=== PATIENT | female | born 1960 | race Caucasian/White ===

== ENCOUNTER → 2017-05-15 08:49 | Outpatient (CLI) | payer MEDICAID, SELFPAY ==
--- NOTE | 2017-05-15 08:57 | US_ITS ---
US abdomen complete HISTORY: Right upper quadrant pain ITS.REASON: PAIN ORDERING PHYSICIAN: Siobhan John PATIENT AGE: 56 years COMPARISON: None FINDINGS: PANCREAS:No obvious pancreatic mass. Pancreas is difficult to visualize due to difficulty in penetrating the overlying fatty liver. CT may be better evaluation for the pancreas if clinically desired LIVER:Increased echogenicity with decreased transmission of sound consistent with hepatic steatosis. No obvious focal liver lesion however small lesions may not be delineated. RIGHT KIDNEY:Unremarkable. Normal size and echogenicity. No hydronephrosis LEFT KIDNEY:Unremarkable. No hydronephrosis. Normal size and echogenicity. GALLBLADDER:Prior cholecystectomy. Common bile duct is normal at 5 mm AORTA:No evidence of aneurysmal dilatation. SPLEEN:Unremarkable. Normal size and echogenicity ASCITES:None demonstrated. IMPRESSION: 1. Diffuse fatty liver. 2. Poor demonstration of the fine detail of the hepatic parenchyma and pancreas which may be better evaluated with CT if clinically warranted
== END ==
PROVIDERS: Family Provider Family Medicine; PCP Family Medicine; Visit Provider Nurse Practitioner Family
DX: R10.9 Unspecified abdominal pain (principal)
CPT/HCPCS: 76700

== ENCOUNTER → 2017-08-27 06:44 | Outpatient (REF) | payer MEDICAID, SELFPAY ==
[2017-08-27 08:16] LABS: Hemoglobin A1C 6.7 % (0.0-7.0)
[2017-08-27 08:47] LABS: Anion Gap 9.6 mEq/L (5-15); Blood Urea Nitrogen 18 mg/dL (7-18); Calcium 8.4 mg/dL (8.5-10.1); Carbon Dioxide 31 mmol/L (21.0-32.0); Chloride 100 mmol/L (98-107); Creatinine,Serum 0.84 mg/dL (0.55-1.02); Estimated Glomerular Filt Rate 70 ml/min (>60); GFR (African American) 85 ML/MIN (>60); Glucose 86 mg/dL (74-106); Potassium 4.6 mmoL/L (3.5-5.1); Sodium 136 mmol/L (136-145)
== END ==
LOC: LAB 06:44
PROVIDERS: Visit Provider Family Medicine
DX: R79.89 Other specified abnormal findings of blood chemistry (principal)
CPT/HCPCS: 80048; 83036

== ENCOUNTER → 2018-02-13 08:13 | Outpatient (POV) | payer MEDICAID, SELFPAY | PROVIDERS: Visit Provider Dentist | DX: Z00.00 Encounter for general adult medical examination without abnormal findings (principal) ==

== ENCOUNTER → 2018-03-13 12:19 | Outpatient (POV) | payer MEDICAID, SELFPAY | PROVIDERS: Visit Provider Dentist | DX: Z00.00 Encounter for general adult medical examination without abnormal findings (principal) ==

== ENCOUNTER → 2018-06-24 14:55 | Outpatient (CLI) | payer MEDICAID, SELFPAY ==
--- NOTE | 2018-06-24 14:57 | US_ITS ---
US breast LT complete COMPARISON: Digital mammograms with CAD same date HISTORY: Left breast pain TECHNIQUE: Ultrasound survey left breast FINDINGS: Ultrasound scanning all 4 quadrants show rather homogeneous echogenicity consistent with fatty type breast parenchyma seen on the mammogram. There is no suspicious cystic or solid mass identified. There is a normal-appearing node in the axilla measuring 2.5 cm and length. IMPRESSION: Unremarkable ultrasound left breast, patient to continue with yearly screening mammography.
--- NOTE | 2018-06-24 14:57 | MM_ITS ---
MM Dig screening mamm BI w/CAD CAD Screening COMPARISON: Digital mammograms with CAD 02/06/2016 INDICATION: There is a history of breast cancer patient's paternal aunt diagnosed before menopause. There has been a previous biopsy right breast for benign disease. TECHNIQUE: Standard CC and MLO images were obtained. R2 CAD reviewed. FINDINGS: The breasts are composed primarily of fat with minimal scattered fibroglandular densities in each breast. There is a biopsy clip central portion right breast. There is no suspicious lesion seen and there are no suspicious microcalcifications. There is a benign-appearing calcification right breast. IMPRESSION: A type breast parenchyma with no suspicious lesion seen BI-RADS Category: 2 Benign Finding(s) RECOMMENDED FOLLOW-UP: 1YR - 1 YEAR FOLLOW-UP (A letter has been sent to the patient regarding results of the study.)
== END ==
PROVIDERS: PCP Family Medicine; Visit Provider Family Medicine
DX: Z12.31 Encounter for screening mammogram for malignant neoplasm of breast (principal); N64.4 Mastodynia
CPT/HCPCS: 76641; 77067

== ENCOUNTER → 2019-04-06 12:39 | Outpatient (CLI) | payer MEDICAID, SELFPAY | PROVIDERS: Visit Provider Family Medicine | DX: R53.1 Weakness (principal) | CPT/HCPCS: 87275; 87276 ==

== ENCOUNTER → 2020-01-18 09:54 | Outpatient (CLI) | payer MEDICAID, SELFPAY ==
--- NOTE | 2020-01-18 09:55 | CT_ITS ---
PROCEDURE: CT FACIAL BONES WO/W CON CLINICAL HISTORY: facial/paroitid swelling. mouth ulcerations COMPARISON: No exams were available for comparison TECHNIQUE: 75 mL Isovue 370 Axial images obtained with sagittal and coronal reformats. All CT scans at the facility use one or more dose reduction, viz: automated exposure control, ma/kV adjustment per patient size (including targeted exams where dose is matched to indication, i.e. head), or iterative reconstruction technique. FINDINGS: Exam is performed without and with enhancement.. The orbits have an unremarkable appearance. There is a small right maxillary retention cyst at 10 mm. And osteoma is present in the right ethmoid sinus mid aspect measuring 3 mm. There are small bilateral sesar bullosa. The ostiomeatal complexes are patent. The sphenoid sinus has an unremarkable appearance. The right parotid gland is slightly larger than the left. There is some slight increased density along the anterior and inferior aspect of the right parotid gland compared to the left. No significant enhancement is evident. No parotid mass. There are 2 small nodular densities along the superior aspect, 1 in the mid aspect and 2 small nodular densities along the inferior aspect of the right parotid the largest of these measuring approximately 6 mm and may be due to small lymph nodes in the parotid gland. There are 2 small extra parotid lymph nodes on the left along the posterior aspect of the parotid inferiorly. No abnormal fluid collections. No mass no abscess. The nasopharynx, oropharynx, hypopharynx, epiglottis, has an unremarkable appearance. There is mild bilateral TMJ arthropathy. The submandibular glands have an unremarkable appearance. Scattered small nodes are present in the neck on both sides. The patient is edentulous. Small sclerotic focus is present in the angle of the mandible on the right measuring approximately 6 mm and may be due to small bone island. IMPRESSION: 1. No acute finding. No evidence of abscess or mass. 2. Mild enlargement of the right parotid gland with slight increased density compared to the left side which could be related to mild parotitis. No abscess or mass. There are 2 small nodular densities along the lower pole 2 in the upper pole and 1 in the mid aspect of the right parotid which may be due to small lymph nodes Dictated by: Tao Madison MD 01/20/2020 09:03 Tao Madison MD in [place] 01/20/2020 09:03
== END ==
PROVIDERS: PCP Family Medicine; Visit Provider Otolaryngology
DX: K12.1 Other forms of stomatitis (principal); R60.0 Localized edema
CPT/HCPCS: 70488; Q9967

== ENCOUNTER → 2020-03-27 11:02 | Outpatient (CLI) | payer MEDICAID, SELFPAY | PROVIDERS: Visit Provider Family Medicine | DX: Z20.822 Contact with and (suspected) exposure to COVID-19 (principal); U07.1 COVID-19 | CPT/HCPCS: U0003 ==

== ENCOUNTER 2020-03-31 12:05 | Outpatient (CLI) | payer MEDICAID, SELFPAY ==
[2020-03-31] VITALS (9 sets, daily range): BP systolic 120–139; BP diastolic 66–89; PULSE 80–90; RESP 16–20; TEMP 37.1–37.3; O2SAT 98–100
== END 2020-03-31 14:25 | disposition home or self-care (01) ==
PROVIDERS: PCP Nurse Practitioner Family; Visit Provider Nurse Practitioner Family
DX: U07.1 COVID-19 (principal)
CPT/HCPCS: 96365

== ENCOUNTER → 2020-09-21 10:10 | Outpatient (CLI) | payer MEDICAID, SELFPAY | PROVIDERS: PCP Nurse Practitioner Family; Visit Provider Internal Medicine Pulmonary Disease | DX: R06.09 Other forms of dyspnea (principal) | CPT/HCPCS: 94060 ==

== ENCOUNTER → 2020-12-07 15:05 | Outpatient (CLI) | payer MEDICAID, SELFPAY ==
--- NOTE | 2020-12-07 15:06 | CT_ITS ---
PROCEDURE: CT LUNG SCREENING CLINICAL INDICATION: lung cancer screening COMPARISON: CT CHW CT CHEST W/ CONTRAST from 09/12/2016 TECHNIQUE: The exam was performed on a GE Light Speed [address] scanner using 2.90 mGy CTDI. A low dose helical CT CHEST was performed on a multi-detector scanner. All CT scans at the facility use one or more dose reduction, viz: automated exposure control, ma/kV adjustment per patient size (including targeted exams where dose is matched to indication, i.e. head), or iterative reconstruction technique. The LDCT was performed in a facility that meets the criteria for the screening program. Data regarding this exam was submitted to ACR which is an approved registry. The order for this exam indicates that it came as a result of a lung cancer screening counseling shard decision-making visit that included all the elements required of such a visit including smoking cessation. The radiologist interpreting this exam meets the [facility] criteria for the LDCT lung cancer screening program. The exam is reported using the Lung-RADS classification scale and reported to the ACR registry. NOTE: This study was performed for the specific purposes of lung cancer screening and is not an alternative to diagnostic chest CT. RADIATION DOSE: CTDI vol(CT dose Index-volume) = 2.90mG DLP (Dose Length Product) = 108.64 mGcm FINDINGS: COPD changes with panlobular emphysema. Irregular parenchymal opacity is present in the left upper lobe at approximately 9 x 5 mm. This may be due to an area of scarring. Parenchymal opacity is also present in the right lower lobe posteriorly in the subpleural region. This region measures 3.6 cm cephalad caudad and 7 mm transverse and 7 mm AP. This also may be related to a parenchymal area of scarring having a linear configuration. These regions however were not present on the previous study of 09/12/2016. OTHER FINDINGS: Coronary artery calcification. Minimal wedge compression changes are present involving T5 with irregularity and lucency along the superior endplate of T5 which may represent a Schmorl's node. IMPRESSION: Lung-RADS Category 3 Probably Benign Follow-up: [address] Chest with contrast Dictated by: Tao Madison MD 12/19/2020 08:13 Tao Madison MD in [place] 12/19/2020 08:13
== END ==
PROVIDERS: PCP Nurse Practitioner Family; Visit Provider Internal Medicine Pulmonary Disease
DX: Z87.891 Personal history of nicotine dependence (principal); Z12.2 Encounter for screening for malignant neoplasm of respiratory organs
CPT/HCPCS: 71271

== ENCOUNTER → 2021-02-21 11:39 | Outpatient (CLI) | payer MEDICAID, SELFPAY ==
--- NOTE | 2021-02-21 11:41 | US_ITS ---
APPROVED REPORT Exam Type: Lower Extremity Segmental Pressures Ticket Attendant: Erlinda Haro RVT Indications Rest Pain: Bilaterally Numbness/Tingling History of Smoking PT IS BED BOUND,EXAM DONE ON STRETCHER,BEST EXAM POSSIBLE Risk Factors History of Smoking Pressures/Indices Right Indices Left Indices Brachial 150.00 mmHg Brachial 142.00 mmHg Low Thigh 130.00 mmHg 0.87 Low Thigh 118.00 mmHg 0.79 Calf 112.00 mmHg 0.75 Calf 100.00 mmHg 0.67 Ankle(PT) 104.00 mmHg 0.69 Ankle(PT) 139.00 mmHg 0.93 Ankle(DP) 82.00 mmHg 0.55 Ankle(DP) 139.00 mmHg 0.93 Digit 78.00 mmHg 0.52 Digit 147.00 mmHg 0.98 Findings RT ADRY:0.69 LT ADRY:0.93 RT TBI:0.52 LT TBI:0.98 WAVEFORMS NON-DIAGNOSTIC BILATERAL R/T PATIENT TREMOR PULSES DAMPANED ON THE RIGHT MODERATE ARTERIAL DISEASE SEEN RIGHT LOWER EXTREMITY. Conclusion RT ADRY:0.69 LT ADRY:0.93 RT TBI:0.52 LT TBI:0.98 WAVEFORMS NON-DIAGNOSTIC BILATERAL R/T PATIENT TREMOR PULSES DAMPANED ON THE RIGHT MODERATE ARTERIAL DISEASE SEEN RIGHT LOWER EXTREMITY. Electronically signed by : Tao Madison MD 02/21/2021 17:38:41
== END ==
PROVIDERS: PCP Nurse Practitioner Family; Visit Provider Nurse Practitioner Family
DX: I70.213 Atherosclerosis of native arteries of extremities with intermittent claudication, bilateral legs (principal)
CPT/HCPCS: 93923

== ENCOUNTER → 2021-04-10 14:19 | Outpatient (CLI) | payer MEDICAID, SELFPAY ==
--- NOTE | 2021-04-10 14:20 | CT_ITS ---
FINAL REPORT TECHNIQUE: Axial images were obtained from the lung apex to the mid abdomen by computed tomography. Coronal reformatted images were obtained. This study was performed with techniques to keep radiation doses as low as reasonably achievable, (ALARA). Individualized dose reduction techniques using automated exposure control or adjustment of mA and/or kV according to the patient''s size were employed. CLINICAL HISTORY: 3 mth F/U lung nodule h/o COPD COMPARISON: December 07, 2020 FINDINGS: There is no axillary adenopathy. There is no hilar or mediastinal adenopathy. Heart size is normal. There is no pericardial or pleural effusion. Limited images of the upper abdomen demonstrate post cholecystectomy change. On the lung window images there is severe emphysema. There is mild scarring. There are several calcified granulomas which are stable. There is a stable pleural based right lower lobe opacity favoring scarring. The previously seen left upper lobe opacity is not well seen. There are no new masses or nodules identified. IMPRESSION: Stable from prior exam. Recommend follow-up CT in 6-12 months. Reviewed, Interpreted and Dictated by Gerry Mejia III, MD Transcribed by Susan Suarez Authenticated by Gerry Mejia III, MD on 04/10/2021 03:23:57 PM [facility]
[2021-04-10 15:40] VITALS: PULSE 87; PULSE 90
--- NOTE | 2021-04-10 16:21 | RESP.PFTSS ---
Patient could not take a deep enough breath to meet criteria for DLCO.
== END ==
PROVIDERS: PCP Nurse Practitioner Family; Visit Provider Internal Medicine Pulmonary Disease
DX: R91.8 Other nonspecific abnormal finding of lung field (principal)
CPT/HCPCS: 71250; 94060; 94640; 94727; 94729

== ENCOUNTER → 2021-06-10 10:17 | Outpatient (CLI) | payer MEDICAID, SELFPAY | PROVIDERS: Visit Provider Ophthalmology | DX: Z11.52 Encounter for screening for COVID-19 (principal) | CPT/HCPCS: C9803; U0003; U0005 ==

== ENCOUNTER 2021-06-13 10:28 | Day surgery (SDC) | payer MEDICAID, SELFPAY ==
[2021-06-13 10:40] VITALS: BP 104/77; PULSE 86; RESP 18; TEMP 36.5; O2SAT 99; BMI 25.1
[2021-06-13 11:53] VITALS: RESP 18
[2021-06-13 12:27] VITALS: BP 117/88; PULSE 59; RESP 18; TEMP 36.1; O2SAT 95
[2021-06-13 12:34] VITALS: BP 117/88; PULSE 93; RESP 18; O2SAT 97
--- NOTE | 2021-06-13 12:44 | SUR.PHASEII ---
Report called to Kinsey Redman at [facility]. All discharge instructions reviewed and copies provided. Reviewed with pt and verbalized understanding.
== END 2021-06-13 12:35 | disposition home or self-care (01) ==
LOC: OR 10:30
PROVIDERS: PCP Nurse Practitioner Family; Visit Provider Ophthalmology
PROC: (CPT 66984; principal; 2021-06-13 13:30)
DX: H25.813 Combined forms of age-related cataract, bilateral (principal); H02.831 Dermatochalasis of right upper eyelid; H02.834 Dermatochalasis of left upper eyelid; F41.9 Anxiety disorder, unspecified; J44.9 Chronic obstructive pulmonary disease, unspecified; Z88.6 Allergy status to analgesic agent; Z91.040 Latex allergy status; Z79.899 Other long term (current) drug therapy
CPT/HCPCS: 66984; V2632

== ENCOUNTER → 2021-06-24 11:29 | Outpatient (CLI) | payer MEDICAID, SELFPAY | PROVIDERS: Visit Provider Family Medicine | DX: Z01.812 Encounter for preprocedural laboratory examination (principal); Z11.52 Encounter for screening for COVID-19 | CPT/HCPCS: C9803; U0003; U0005 ==

== ENCOUNTER 2021-06-27 10:09 | Day surgery (SDC) | payer MEDICAID, SELFPAY ==
[2021-06-27 10:30] VITALS: BP 105/76; PULSE 101; RESP 18; TEMP 36.3; O2SAT 100; BMI 25.8
[2021-06-27 11:31] VITALS: RESP 16
[2021-06-27 11:50] VITALS: BP 108/67; PULSE 99; RESP 16; TEMP 36.6; O2SAT 93
== END 2021-06-27 12:26 | disposition home or self-care (01) ==
LOC: OR 10:10
PROVIDERS: Visit Provider Ophthalmology
PROC: (CPT 66984; principal; 2021-06-27 12:30)
DX: H25.813 Combined forms of age-related cataract, bilateral (principal); H02.831 Dermatochalasis of right upper eyelid; H02.834 Dermatochalasis of left upper eyelid; J44.9 Chronic obstructive pulmonary disease, unspecified; F41.9 Anxiety disorder, unspecified; Z88.6 Allergy status to analgesic agent; Z91.040 Latex allergy status; Z79.899 Other long term (current) drug therapy
CPT/HCPCS: 66984; V2632

== ENCOUNTER → 2021-07-01 17:17 | Outpatient (CLI) | payer MEDICAID, SELFPAY | PROVIDERS: Visit Provider Family Medicine | DX: Z01.812 Encounter for preprocedural laboratory examination (principal); Z11.52 Encounter for screening for COVID-19 | CPT/HCPCS: C9803; U0003; U0005 ==

== ENCOUNTER 2021-07-03 10:14 | Day surgery (SDC) | payer MEDICAID, SELFPAY ==
[2021-07-03 10:34] VITALS: BP 128/102; PULSE 91; RESP 18; TEMP 36.1; O2SAT 98; BMI 27.3
[2021-07-03 11:08] VITALS: BP 143/74; PULSE 91; RESP 20; O2SAT 99
--- NOTE | 2021-07-03 11:11 | HMH.OPNOTE ---
Date of procedure: 07/03/21 Pre-op Diagnosis:: Difficulty voiding, suprapubic discomfort Post-op Diagnosis:: Urethral stenosis Procedure performed:: Cystoscopy with urethral dilation Surgeon:: Alex Nicolas MD Anesthesia: local Estimated blood loss (mL): 0 Clinical Note:: 60-year-old white female with history of rheumatoid arthritis causing 9 ambulatory status. Patient is confined to bed or stretcher. She manages her bladder by voiding into depends. She states over the last few weeks that she has had more difficulty voiding with some associated suprapubic discomfort. Bladder scan in the office showed a residual of 120 cc. Urinary cultures in her primary care physician's office have been negative. Operative findings:: Patient with leg contractures making visualization of the urethra a bit difficult. The urethra was visualized and there was some resistance passing the scope through the urethra. The bladder was examined and was normal. Passage of the scope did cause some minor bleeding from the urethra presumably from instrumentation and dilation of the urethral stenosis. Operative note:: Patient taken to the cystoscopy suite after informed consent was obtained. On the stretcher she was prepped and draped in the standard surgical fashion. 2% lidocaine placed into the urethra and after 5 minutes the flexible cystoscope was introduced into the urethral meatus. Her lower extremity contractures made visualization of the urethral meatus a bit difficult we did cannulate the meatus on the first attempt and the scope passed with some resistance into the bladder. The bladder was examined in a systematic fashion. There is no evidence mucosal abnormalities, stones, trabeculation or cellules. There was some debris in the bladder consistent with incomplete bladder emptying. Scope retroflexed showing no evidence of abnormalities at the bladder neck. The urethra was visualized showing no evidence of masses. Scope removed and patient tolerated procedure well. We discussed the findings today and that her urinary difficulty likely due to the urethral stenosis. Dilation with the scope should help her avoid better and more completely. Condition: stable Disposition: same day Specimens:: None Complications:: None
[2021-07-03 11:17] VITALS: BP 143/74; PULSE 91; RESP 18; TEMP 36.3; O2SAT 99
== END 2021-07-03 11:34 | disposition home or self-care (01) ==
LOC: OUTP 10:15
PROVIDERS: PCP Family Medicine; Visit Provider Urology
PROC: (CPT 52281; principal; 2021-07-03 10:30)
DX: N35.92 Unspecified urethral stricture, female (principal); J44.9 Chronic obstructive pulmonary disease, unspecified; F32.A Depression, unspecified; E78.5 Hyperlipidemia, unspecified; I10 Essential (primary) hypertension; M06.9 Rheumatoid arthritis, unspecified; Z99.81 Dependence on supplemental oxygen; D64.9 Anemia, unspecified; Z88.6 Allergy status to analgesic agent; Z91.040 Latex allergy status; Z79.899 Other long term (current) drug therapy
CPT/HCPCS: 52281

== ENCOUNTER → 2021-09-28 09:21 | Outpatient (CLI) | payer MEDICAID, SELFPAY ==
--- NOTE | 2021-09-28 09:48 | CT_ITS ---
FINAL REPORT TECHNIQUE: Axial imaging of the chest was obtained without contrast. High-resolution protocol was utilized with 1.25 mm slices at 10 mm intervals. This study was performed with techniques to keep radiation doses as low as reasonably achievable (ALARA). Individualized dose reduction techniques using automated exposure control or adjustment of mA and/or kV according to the patient's size were employed. CLINICAL HISTORY: J84.9 - Interstitial pulmonary disease, unspecified COMPARISON: 04/10/2021 FINDINGS: High density material seen in the distal esophagus, presumably ingested. There is no axillary adenopathy. There is no hilar or mediastinal mass or adenopathy. Heart size is normal. There is no pericardial or pleural effusion. No new suspicious infiltrate or nodule is identified on lung window images. There are scattered calcified granulomas. Linear scarring in the posterior right upper lobe is stable. Slightly irregular right lower lobe opacity is unchanged. High-resolution images demonstrate no evidence of pulmonary fibrosis or bronchiectasis. Emphysema is again identified. There is no acute abnormality of the upper abdomen. There is no acute osseous abnormality. IMPRESSION: Stable, presumed scarring in the right lower lobe. Emphysema. No new abnormality. Reviewed, Interpreted and Dictated by Suzie Gonzalez MD Transcribed by Lindsay Marcos Authenticated and [facility]
[2021-09-28 10:35] VITALS: PULSE 77; PULSE 82
== END ==
PROVIDERS: PCP Family Medicine; Visit Provider Internal Medicine Pulmonary Disease
DX: J84.9 Interstitial pulmonary disease, unspecified (principal)
CPT/HCPCS: 71250; 94060; 94640

== ENCOUNTER → 2021-11-07 14:25 | Outpatient (CLI) | payer MEDICAID, SELFPAY ==
--- NOTE | 2021-11-07 14:25 | CT_ITS ---
FINAL REPORT TECHNIQUE: Axial images were obtained from the lung apex to the mid abdomen by computed tomography. Coronal reformatted images were obtained. This study was performed with techniques to keep radiation doses as low as reasonably achievable, (ALARA). Individualized dose reduction techniques using automated exposure control or adjustment of mA and/or kV according to the patient''s size were employed. CLINICAL HISTORY: pulmonary nodule follow up COMPARISON: 09/28/2021 and 04/10/2021 FINDINGS: There is moderate coronary artery calcification. There is no axillary adenopathy. There is no hilar or mediastinal adenopathy. Heart size is normal. There is no pericardial or pleural effusion. Note is made of severe emphysema. There is stable, irregular opacity in the right lower lobe, favor scar. There are several calcified granulomas bilaterally. There is a new pleural based soft tissue opacity in the posterior left upper thorax, favor inflammatory. The patient is status post cholecystectomy. IMPRESSION: New pleural based soft tissue opacity in the posterior left upper thorax, favor inflammatory but recommend follow-up CT in 3 6 months. Stable right lower lobe opacity, favor scar. Reviewed, Interpreted and Dictated by Gerry Mejia III, MD Transcribed by Marianna Go Authenticated and [facility]
== END ==
PROVIDERS: PCP Family Medicine; Visit Provider Internal Medicine Pulmonary Disease
DX: R91.8 Other nonspecific abnormal finding of lung field (principal)
CPT/HCPCS: 71250

== ENCOUNTER 2021-12-28 20:31 | Emergency (ER) | payer OTHER, MEDICAID, SELFPAY ==
[2021-12-28 20:31] VITALS: BP 94/60; PULSE 85; RESP 18; TEMP 37.5; O2SAT 96; BMI 30.9
[2021-12-28 21:05] VITALS: BP 89/61; PULSE 85; O2SAT 95
--- NOTE | 2021-12-28 21:08 | XR_ITS ---
PROCEDURE INFORMATION: Exam: XR Chest Exam date and time: 12/28/2021 9:28 PM Age: 61 years old Clinical indication: Shortness of breath; Additional info: R/O pna TECHNIQUE: Imaging protocol: Radiologic exam of the chest. Views: 1 view. COMPARISON: CT CHEST WO CON 11/07/2021 2:29 PM FINDINGS: Lungs: Examination is limited by patient positioning. No lobar consolidation. Pleural spaces: No pneumothorax. Heart/Mediastinum: No cardiomegaly. Bones/joints: No acute abnormality. IMPRESSION: No definite acute findings.
--- NOTE | 2021-12-28 21:16 | PC.NURSE ---
RAD at for CXR
--- NOTE | 2021-12-28 21:16 | PC.NURSE ---
Pt voiced that she needed to use a bedpan, when [employer] and I were at BS to place pt on bedpan she advised that she no longer needed to use it. Pt was repositioned for comfort with pillow under right side.
[2021-12-28 21:17] LABS: Basophils # 0.2 K/mm3 (0-0.2); Basophils % 1.6 % (0.1-2.0); Eosinophils # 0.5 K/mm3 (0.0-0.4); Eosinophils % 5.3 % (0.1-12.0); Hemoglobin 13.7 g/dL (12.2-16.2); Lymphocytes # 2.8 K/mm3 (0.7-4.5); Lymphocytes % 30.7 % (10-50); Mean Corpuscular HGB Conc 31.9 g/dL (31.8-35.4); Mean Corpuscular Hemoglobin 29.3 pg (27.0-31.2); Mean Corpuscular Volume 91.9 fl (81-99); Mean Platelet Volume 7.8 fl (7.4-10.4); Monocytes # 0.5 K/mm3 (0.1-1.0); Monocytes % 5.4 % (1.7-9.3); Neutrophils # 5.2 K/mm3 (1.8-7.8); Platelet Count 310 K/mm3 (142-424); Red Blood Count 4.68 M/mm3 (4.20-5.40)
[2021-12-28 21:22] LABS: Alanine Aminotransferase 28 U/L (12-78); Albumin Level 3.8 g/dl (3.5-5.0); Albumin/Globulin Ratio 1.2 (1.1-1.8); Alkaline Phosphatase 77 U/L (38-126); Anion Gap 15.2 mEq/L (5-15); Aspartate Amino Transferase 37 U/L (14-36); Bilirubin,Total 0.2 mg/dl (0.2-1.3); Blood Urea Nitrogen 20 mg/dl (7-17); Calcium 8.9 mg/dl (8.4-10.2); Carbon Dioxide 35 mmol/L (22.0-30.0); Chloride 94 mmol/L (98-107); Creatinine Clearance Estimated 73 mL/min (50-200); Estimated Glomerular Filt Rate 63 ml/min (>60); GFR (African American) 77 ML/MIN (>60); Globulin 3.1 g/dL (1.3-3.2); Glucose 103 mg/dl (74-100); Potassium 4.2 mmoL/L (3.5-5.1); Sodium 140 mmol/L (136-145); Total Protein,Serum 6.9 g/dl (6.3-8.2)
[2021-12-28 21:31] VITALS: BP 98/68; PULSE 85; O2SAT 94
[2021-12-28 22:01] LABS: Lactic Acid 1.7 mmol/L (0.7-2.1)
[2021-12-28 22:05] VITALS: BP 116/75; PULSE 86; O2SAT 96
--- NOTE | 2021-12-28 22:05 | PC.NURSE ---
Pt used bedpan. Pt repositioned in bed for comfort. No other needs or complaints voiced at this time. Call light within reach.
[2021-12-28 22:10] LABS: Microscopic, Urine URINE MICROSCOPIC (MICROSCOPIC)
[2021-12-28 22:11] LABS: Appearance,Urine CLEAR (Clear); Bilirubin,Urine Negative (Negative); Blood, Urine Negative (Negative); Color,Urine YELLOW (Yellow); Glucose,Urine (UA) Negative (Negative); Ketones,Urine Negative (Negative); Leukocyte Esterase,Urine 2+ (Negative); Nitrate,Urine Negative (Negative); Protein,Urine Negative (Negative); Specific Gravity, Urine 1.015 (1.005-1.030); Urobilinogen,Urine 0.2 EU/dl (0.2)
[2021-12-28 22:49] LABS: Amorphous Sediment,Urine Trace /lpf; Bacteria,Urine 2+ /lpf; WBC,Urine 20-50 #/hpf (0-3)
--- NOTE | 2021-12-28 23:07 | PC.NURSE ---
Updated Ysabel at [place] on pt condition
--- NOTE | 2021-12-28 23:13 | PC.NURSE ---
Pt provided with snacks and drink
--- NOTE | 2021-12-28 23:33 | HMH.EDRECH ---
Discharge Plan Disposition Patient Disposition: [facility] Chief Complaint: Recheck/Abnormal Lab/Rx Prescriptions Prescriptions: No Action diazepam 2 mg tablet 2 mg PO HS PRN (Reason: Anxiety) famotidine 40 mg tablet 40 mg PO DAILY naproxen 500 mg tablet,delayed release (DR/EC) 500 mg PO BID venlafaxine 75 mg capsule,extended release 24hr 75 mg PO DAILY trazodone 150 mg tablet 150 mg PO DAILY fentanyl 50 mcg/hr patch 72 hour 1 patch TD Q72H Qty: 10 0RF docusate calcium 240 MG capsule 240 mg PO DAILY tiotropium bromide 5 CAP capsule, w/inhalation device 2 cap inhalation DAILY clopidogrel 75 MG tablet 75 mg PO DAILY gabapentin 400 MG capsule 800 mg PO TID tramadol 50 MG tablet 50 mg PO Q6 PRN (Reason: Moderate Pain) promethazine 25 MG tablet 25 mg PO Q6 PRN (Reason: Nausea And Vomiting) polyethylene glycol 3350 17 GM powder in packet 17 g PO DAILY albuterol sulfate 8.5 GM HFA aerosol inhaler 2 puffs inhalation Q4HP PRN (Reason: Shortness Of Breath Or Wheezing) Referrals Follow up/Referrals: Provider,Referral, [Primary Care Provider] - See instructions Maurizio Escobedo MD [Staff Physician] - See instructions Clinical Impressions Clinical Impression: UTI (urinary tract infection), Bacterial infection due to Proteus mirabilis Instructions Patient Instructions: DI for Urinary Tract Infection (UTI) Discharge ED Provider: Yao Coulter Recheck HPI General Chief Complaint: Recheck/Abnormal Lab/Rx Stated Complaint: weakness Time Seen by Provider: 12/28/21 23:33 Mode of Arrival: EMS Source of Information: EMS Limitations: No Limitations Description of Symptoms (Recalled from ER Triage Doc. by RN): EMS STATED THE HALFWAY DID LAB WORK AND IT CAME BBACK THE PT HAD A UTI THE PT HAS BEEN CONFUSED AND NOT EATING. PT IS A HOSPICE PT AND EMS STATES HOSPICE WAS NOTIFIED OF PT CONDITION History of Present Illness HPI narrative: has uti and was sent for eval from [facility] and reported confusion complaint: abnormal lab Initial visit (ago): day(s) Returns today for: called because of abnormal lab/test Symptoms since prior visit: no new symptoms Associated symptoms: none Related Data Home Medications Medication Instructions Recorded Confirmed albuterol sulfate 90 mcg/actuation 2 puffs inhalation Q4HP PRN 02/12/18 11/07/21 aerosol inhaler Shortness Of Breath Or Wheezing gabapentin 400 mg capsule 800 mg PO TID Pain 02/12/18 11/07/21 polyethylene glycol 3350 17 gram 17 g PO DAILY unknown 02/12/18 11/07/21 oral powder packet promethazine 25 mg tablet 25 mg PO Q6 PRN Nausea And Vomiting 02/12/18 11/07/21 tramadol 50 mg tablet 50 mg PO Q6 PRN Moderate Pain 02/12/18 11/07/21 diazepam 2 mg tablet 2 mg PO HS PRN Anxiety 08/29/20 11/07/21 famotidine 40 mg tablet 40 mg PO DAILY GERD 08/29/20 11/07/21 naproxen 500 mg tablet,delayed 500 mg PO BID Pain 08/29/20 11/07/21 release trazodone 150 mg tablet 150 mg PO DAILY Anxiety 08/29/20 11/07/21 venlafaxine 75 mg capsule,extended 75 mg PO DAILY Anxiety 08/29/20 11/07/21 release 24 hr docusate calcium 240 mg capsule 240 mg PO DAILY bowels 06/13/21 11/07/21 tiotropium bromide 18 mcg capsule 2 cap inhalation DAILY COPD 06/13/21 11/07/21 with inhalation device clopidogrel 75 mg tablet 75 mg PO DAILY dvt 06/27/21 11/07/21 Previous Rx's Medication Instructions Recorded fentanyl 50 mcg/hr transdermal 1 patch transdermal Q72H #10 ea 08/29/21 patch Allergies Allergy/AdvReac Type Severity Reaction Status Date / Time codeine [CODEINE] Allergy Mild Verified 11/07/21 14:45 latex [LATEX] Allergy Mild Verified 11/07/21 14:45 PFSH PFSH Medical History Chronic hypoxemic respiratory failure COPD (chronic obstructive pulmonary disease) Dyspnea on exertion Exertional shortness of breath Multiple pulmonary nodules Other nonspecific abnormal finding of lung field
[2021-12-29 00:56] VITALS: BP 98/61; PULSE 67; RESP 14; TEMP 36.6; O2SAT 94
== END 2021-12-29 01:22 ==
PROVIDERS: Emergency Provider Emergency Medicine
DX: R53.1 Weakness (principal); N39.0 Urinary tract infection, site not specified; B96.4 Proteus (mirabilis) (morganii) as the cause of diseases classified elsewhere
CPT/HCPCS: 71045; 80053; 81001; 83605; 85025; 87040; 87086; 87088; 87186; 96365; 96367; 99284; J0696

== ENCOUNTER 2022-06-03 08:13 | Emergency (ER) | payer OTHER, MEDICAID, SELFPAY ==
[2022-06-03] VITALS (8 sets, daily range): BP systolic 117–151; BP diastolic 83–108; PULSE 82–106; RESP 16–18; TEMP 37–37.3; O2SAT 93–96; BMI 25.8
--- NOTE | 2022-06-03 08:15 | CT_ITS ---
PROCEDURE INFORMATION: Exam: CT Cervical Spine Without Contrast Exam date and time: 06/03/2022 8:37 AM Age: 61 years old Clinical indication: Injury or trauma; Fall; Blunt trauma TECHNIQUE: Imaging protocol: Computed tomography of the cervical spine without contrast. Radiation optimization: All CT scans at this facility use at least one of these dose optimization techniques: automated exposure control; mA and/or kV adjustment per patient size (includes targeted exams where dose is matched to clinical indication); or iterative reconstruction. REPORTING DATA: Count of CT and Cardiac NM exams in prior 12 months: This patient has received 3 known CTs and 0 known cardiac nuclear medicine studies in the 12 months prior to the current study. COMPARISON: CT CERVICAL SPINE WO CON 11/04/2018 4:50 PM FINDINGS: Bones/joints: A right convex spinal curve is observed. There is no evidence of fracture. Lungs: The visualized portions of the lung apices are normal. Thyroid: The thyroid appears normal. Vasculature: The vasculature demonstrates diffuse moderate atherosclerotic calcification. Soft tissues: Unremarkable. IMPRESSION: There is no evidence of fracture.
--- NOTE | 2022-06-03 08:15 | XR_ITS ---
PROCEDURE INFORMATION: Exam: XR Left Knee Exam date and time: 06/03/2022 8:59 AM Age: 61 years old Clinical indication: Injury or trauma; Fall; Blunt trauma; Knee; Left TECHNIQUE: Imaging protocol: Radiologic exam of the left knee. Views: 3 views. COMPARISON: US ARTERIAL LOWER EXT REST 02/21/2021 11:43 AM FINDINGS: Bones/joints: Tricompartmental joint space narrowing and osteophyte formation consistent with degenerative changes. There is no evidence of acute fracture.There is no evidence of malalignment or dislocation. Osteopenia Soft tissues: Normal. IMPRESSION: 1. Tricompartmental joint space narrowing and osteophyte formation consistent with degenerative changes. 2. There is no evidence of acute fracture.There is no evidence of malalignment or dislocation.
--- NOTE | 2022-06-03 08:15 | CT_ITS ---
PROCEDURE INFORMATION: Exam: CT Head Without Contrast Exam date and time: 06/03/2022 8:34 AM Age: 61 years old Clinical indication: Injury or trauma; Fall; Blunt trauma (contusions or hematomas); Without loss of consciousness TECHNIQUE: Imaging protocol: Computed tomography of the head without contrast. Radiation optimization: All CT scans at this facility use at least one of these dose optimization techniques: automated exposure control; mA and/or kV adjustment per patient size (includes targeted exams where dose is matched to clinical indication); or iterative reconstruction. REPORTING DATA: Count of CT and Cardiac NM exams in prior 12 months: This patient has received 3 known CTs and 0 known cardiac nuclear medicine studies in the 12 months prior to the current study. COMPARISON: CT HEAD/BRAIN WO CON 11/04/2018 4:50 PM FINDINGS: Brain: There is moderate atrophy and chronic white matter microangiopathic changes. Asymmetric prominence of the left sylvian fissure compared to the right is stable from the comparison study. Cerebral ventricles: There is compensatory ventricular dilation. Pituitary gland and sella: There is a normal empty pituitary sella. Paranasal sinuses: Visualized sinuses are unremarkable. No fluid levels. Mastoid air cells: Visualized mastoid air cells are well aerated. Dental: The patient is edentulous. Bones/joints: There is moderate degenerative disease of the temporomandibular joints bilaterally. Soft tissues: Unremarkable. Vasculature: The vasculature demonstrates diffuse moderate atherosclerotic calcification. IMPRESSION: 1. There is moderate atrophy and chronic white matter microangiopathic changes. Asymmetric prominence of the left sylvian fissure compared to the right is stable from the comparison study. 2. There is moderate degenerative disease of the temporomandibular joints bilaterally. 3. No acute intracranial process is identified.
--- NOTE | 2022-06-03 08:15 | XR_ITS ---
PROCEDURE INFORMATION: Exam: XR Left Foot Exam date and time: 06/03/2022 8:59 AM Age: 61 years old Clinical indication: Injury or trauma; Fall; Other: Nail torn off; Additional info: Middle toe injury TECHNIQUE: Imaging protocol: Radiologic exam of the left foot. Views: 3 or more views. COMPARISON: US ARTERIAL LOWER EXT REST 02/21/2021 11:43 AM FINDINGS: Bones/joints: Degenerative changes in the 1st metatarsal-phalangeal joint and IP joint and 1st tarsal metatarsal joint. Degenerative changes in the tarsal bones. There is no evidence of acute fracture.There is no evidence of malalignment or dislocation. Osteopenia Soft tissues: Normal. IMPRESSION: 1. Degenerative changes in the 1st metatarsal-phalangeal joint and IP joint and 1st tarsal metatarsal joint. 2. There is no evidence of acute fracture.There is no evidence of malalignment or dislocation.
--- NOTE | 2022-06-03 08:25 | PC.NURSE ---
Report called by Evelia at formerly [facility], who describes patient falling out of bed, which never happens, c/o hip and feet; Evelia reports pt said she was dreaming and fell out of bed, and states she is currently a hospice patient', reports PMHx COPD w 3LO2 by NC, PNA, substance abuse; reports POA was informed of ED transfer
--- NOTE | 2022-06-03 08:38 | HMH.EDGENADL ---
Discharge Plan Disposition Patient Disposition: Home, Self-Care Condition: Good Prescriptions Prescriptions: No Action diazepam 2 mg tablet 2 mg PO HS PRN (Reason: Anxiety) famotidine 40 mg tablet 40 mg PO DAILY naproxen 500 mg tablet,delayed release (DR/EC) 500 mg PO BID venlafaxine 75 mg capsule,extended release 24hr 75 mg PO DAILY trazodone 150 mg tablet 150 mg PO DAILY budesonide-formoterol [Symbicort] 160-4.5 mcg/actuation HFA aerosol inhaler 2 puff inhalation BID 90 Days Qty: 10.2 3RF Spiriva with HandiHaler 18 mcg capsule, w/inhalation device 1 cap inhalation DAILY 90 Days Qty: 90 3RF Rx Instructions: puncture 1 cap using device; one dose = 2 inhalations albuterol sulfate 90 mcg/actuation HFA aerosol inhaler 2 inh inhalation QID PRN (Reason: shortness of breath or wheezing) 90 Days Qty: 8.5 2RF fentanyl 50 mcg/hr patch 72 hour 1 patch TD Q72H Qty: 10 0RF docusate calcium 240 MG capsule 240 mg PO DAILY tiotropium bromide 5 CAP capsule, w/inhalation device 2 cap inhalation DAILY clopidogrel 75 MG tablet 75 mg PO DAILY gabapentin 400 MG capsule 800 mg PO TID tramadol 50 MG tablet 50 mg PO Q6 PRN (Reason: Moderate Pain) promethazine 25 MG tablet 25 mg PO Q6 PRN (Reason: Nausea And Vomiting) polyethylene glycol 3350 17 GM powder in packet 17 g PO DAILY albuterol sulfate 8.5 GM HFA aerosol inhaler 2 puffs inhalation Q4HP PRN (Reason: Shortness Of Breath Or Wheezing) Referrals Follow up/Referrals: Maurizio Escobedo MD [Primary Care Provider] - See instructions Clinical Impressions Clinical Impression: Traumatic avulsion of nail plate of toe Instructions Patient Instructions: How to Prevent Falls Discharge ED Provider: Dread Mendosa General Adult HPI General Chief complaint: Fall Stated complaint: Fall Time Seen by Provider: 06/03/22 08:15 Mode of Arrival: EMS Source of Information: Patient Limitations: Physical Limitations Description of Symptoms (Recalled from ER Triage Doc. by RN): Pt reportedly fell out of bed, c/o of injury or pain to Left toes and foot, ankle, knee, Right hip, left elbow pain History of Present Illness HPI narrative: Patient is a 61-year-old female currently on hospice due to COPD who presents with fall from bed. She reports that she was trying to answer the phone last night when she rolled out of the bed approximately 2-1/2 to 3 feet off the ground. She did not lose consciousness. Does not take any blood thinners. She complains of some pain to her left foot as well as her left knee. She says that she does have some pain on her right elbow as well but might have been there prior to the fall. Denies any numbness or tingling into her extremities. Denies any chest or abdominal pain. Denies any shortness of breath. Related Data Home Medications Medication Instructions Recorded Confirmed albuterol sulfate 90 mcg/actuation 2 puffs inhalation Q4HP PRN 02/12/18 05/17/22 aerosol inhaler Shortness Of Breath Or Wheezing gabapentin 400 mg capsule 800 mg PO TID Pain 02/12/18 05/17/22 polyethylene glycol 3350 17 gram 17 g PO DAILY unknown 02/12/18 05/17/22 oral powder packet promethazine 25 mg tablet 25 mg PO Q6 PRN Nausea And Vomiting 02/12/18 05/17/22 tramadol 50 mg tablet 50 mg PO Q6 PRN Moderate Pain 02/12/18 05/17/22 diazepam 2 mg tablet 2 mg PO HS PRN Anxiety 08/29/20 05/17/22 famotidine 40 mg tablet 40 mg PO DAILY GERD 08/29/20 05/17/22 naproxen 500 mg tablet,delayed 500 mg PO BID Pain 08/29/20 05/17/22 release trazodone 150 mg tablet 150 mg PO DAILY Anxiety 08/29/20 05/17/22 venlafaxine 75 mg capsule,extended 75 mg PO DAILY Anxiety 08/29/20 05/17/22 release 24 hr docusate calcium 240 mg capsule 240 mg PO DAILY bowels 06/13/21 05/17/22 tiotropium bromide 18 mcg capsule 2 cap inhalation DAILY COPD 06/13/21 05/17/22 with inhalation device clopido
--- NOTE | 2022-06-03 08:43 | XR_ITS ---
PROCEDURE INFORMATION: Exam: XR Pelvis Exam date and time: 06/03/2022 8:59 AM Age: 61 years old Clinical indication: Injury or trauma; Fall; Blunt trauma (contusions or hematomas); Bilateral; Hip; Injury date: 06/03/22; Additional info: Fall-- out of bed TECHNIQUE: Imaging protocol: Radiologic exam of the pelvis. Views: 1 or 2 view. COMPARISON: CR XR PELVIS 1-2V 11/04/2018 5:03 PM FINDINGS: Bones/joints: There is no evidence of acute fracture.There is no evidence of malalignment or dislocation. Degenerative changes in both hips Soft tissues: Unremarkable. IMPRESSION: There is no evidence of acute fracture.There is no evidence of malalignment or dislocation.
--- NOTE | 2022-06-03 09:48 | PC.NURSE ---
Current Vital signs: 127/99, 96% on 3L NC, HR 90, RR 16
--- NOTE | 2022-06-03 10:37 | PC.NURSE ---
called robert to transport back to [place]
== END 2022-06-03 11:28 | disposition home or self-care (01) ==
PROVIDERS: Emergency Provider Student in an Organized Health Care Education/Training Program; PCP Family Medicine
DX: S91.209A Unspecified open wound of unspecified toe(s) with damage to nail, initial encounter (principal); M25.551 Pain in right hip; W06.XXXA Fall from bed, initial encounter
CPT/HCPCS: 70450; 72125; 72170; 73562; 73630; 99284; 99285

== ENCOUNTER → 2022-06-08 14:41 | Outpatient (CLI) | payer OTHER, MEDICAID, SELFPAY | PROVIDERS: PCP Family Medicine; Visit Provider Family Medicine | DX: N76.0 Acute vaginitis (principal); B96.4 Proteus (mirabilis) (morganii) as the cause of diseases classified elsewhere | CPT/HCPCS: 87070; 87077; 87186; 87205 ==

== ENCOUNTER → 2022-10-21 15:41 | Outpatient (CLI) | payer MEDICAID, SELFPAY ==
[2022-10-21 16:21] LABS: Microscopic, Urine URINE MICROSCOPIC (MICROSCOPIC)
[2022-10-21 16:35] LABS: Appearance,Urine SL CLOUDY (Clear); Bilirubin,Urine Negative (Negative); Blood, Urine 3+ (Negative); Color,Urine YELLOW (Yellow); Glucose,Urine (UA) Negative (Negative); Ketones,Urine Negative (Negative); Leukocyte Esterase,Urine 2+ (Negative); Nitrate,Urine Negative (Negative); PH,Urine 6.5 (5.0-8.5); Protein,Urine 1+ (Negative); Urobilinogen,Urine 0.2 EU/dl (0.2)
[2022-10-21 16:48] LABS: Bacteria,Urine 2+ /lpf; RBC,Urine TNTC #/hpf (0-3); WBC,Urine TNTC #/hpf (0-3)
== END ==
PROVIDERS: PCP Family Medicine; Visit Provider Family Medicine
DX: N39.0 Urinary tract infection, site not specified (principal); B96.4 Proteus (mirabilis) (morganii) as the cause of diseases classified elsewhere
CPT/HCPCS: 81001; 87086; 87088; 87186

== ENCOUNTER → 2022-11-07 15:47 | Outpatient (CLI) | payer MEDICAID, SELFPAY ==
[2022-11-07 15:55] LABS: Microscopic, Urine URINE MICROSCOPIC (MICROSCOPIC)
[2022-11-07 16:01] LABS: Appearance,Urine CLEAR (Clear); Bilirubin,Urine Negative (Negative); Blood, Urine 3+ (Negative); Color,Urine YELLOW (Yellow); Glucose,Urine (UA) Negative (Negative); Ketones,Urine TRACE (Negative); Leukocyte Esterase,Urine 2+ (Negative); Nitrate,Urine POSITIVE (Negative); Protein,Urine 2+ (Negative); Specific Gravity, Urine 1.025 (1.005-1.030); Urobilinogen,Urine 0.2 EU/dl (0.2)
[2022-11-07 16:19] LABS: Bacteria,Urine 2+ /lpf; RBC,Urine 50-100 #/hpf (0-3); WBC,Urine 50-100 #/hpf (0-3)
== END ==
PROVIDERS: PCP Family Medicine; Visit Provider Family Medicine
DX: N39.0 Urinary tract infection, site not specified (principal); B96.89 Other specified bacterial agents as the cause of diseases classified elsewhere
CPT/HCPCS: 81001; 87086; 87088; 87186

== ENCOUNTER 2022-11-08 11:31 | Emergency (ER) | payer MEDICAID, SELFPAY ==
--- NOTE | 2022-11-08 11:27 | ECG_ITS ---
APPROVED REPORT Exam: Resting ECG HR:89 bpm ECG Measurements Heart Rate 89 AXES ND 175 P 85 QRSd 88 QRS 63 QT 358 T 77 QTc 405 Conclusion SINUS RHYTHM NONSPECIFIC ST & T-WAVE ABNORMALITY BORDERLINE ECG UNCONFIRMED REPORT Electronically signed by : Jarrell Lock MD 11/09/2022 16:49:37
[2022-11-08 11:46] VITALS: BP 166/85; PULSE 87; RESP 19; TEMP 36.9; O2SAT 98; BMI 28.7
--- NOTE | 2022-11-08 11:51 | CT_ITS ---
FINAL REPORT TECHNIQUE: Postcontrast axial images through the abdomen and pelvis were performed. This study was performed with techniques to keep radiation doses as low as reasonably achievable, (ALARA). Individualized dose reduction techniques using automated exposure control or adjustment of mA and/or kV according to the patient's size were employed. CLINICAL HISTORY: AMS, abd pain COMPARISON: 05/19/2020 FINDINGS: Abdomen: There is mild right base atelectasis or scar. There is mild fatty infiltration of the liver. The patient is status post cholecystectomy. The spleen is unremarkable. The adrenals are normal. The pancreas is unremarkable. The kidneys enhance appropriately. The aorta is normal in caliber. No free fluid or adenopathy is identified. No findings for mechanical bowel obstruction are identified. Pelvis: The appendix is not identified. There is a moderate mount of stool throughout the colon. There is a 32 mm probable left ovarian cyst. The patient is status post hysterectomy. There is bladder wall thickening with bladder wall calcifications and probable small bladder stones. No free fluid, free air, abscess or adenopathy is identified. IMPRESSION: Probable small bladder stones. Reviewed, Interpreted and Dictated by Gerry Mejia III, MD Transcribed by Marianna Go Authenticated and [facility]
--- NOTE | 2022-11-08 11:51 | XR_ITS ---
FINAL REPORT CLINICAL HISTORY: AMS COMPARISON: 03/30/2021 FINDINGS: SINGLE VIEW CHEST The heart is normal in size. Patient is rotated to the right. The mediastinum is unremarkable. The lungs are clear. There is no pneumothorax. IMPRESSION: No acute process. Reviewed, Interpreted and Dictated by Gerry Mejia III, MD Transcribed by Marianna Go Authenticated and [facility]
--- NOTE | 2022-11-08 11:52 | CT_ITS ---
FINAL REPORT CLINICAL HISTORY: [facility] COMPARISON: 06/03/2022 FINDINGS: Axial images of the head were obtained without contrast. Coronal reformatted images were also obtained. This study was performed with techniques to keep radiation doses as low as reasonably achievable (ALARA). Individualized dose reduction techniques using automated exposure control or adjustment of mA and/or kV according to the patient's size were employed. Motion artifact is identified on many of the images. There is generalized age-appropriate atrophy. Periventricular low-attenuation areas are seen consistent with mild chronic ischemic changes. There is no evidence of intracranial hemorrhage or mass. There is no evidence of acute infarct. There is no evidence of shift of the midline structures. No skull abnormality is seen on the bone window images. IMPRESSION: Atrophy and mild periventricular chronic ischemic changes. No acute intracranial abnormality identified. Reviewed, Interpreted and Dictated by Gerry Mejia III, MD Transcribed by Marianna Go Authenticated and [facility]
[2022-11-08 12:15] LABS: Basophils % 0.6 % (0.1-2.0); Eosinophils # 0.1 K/mm3 (0.0-0.4); Eosinophils % 1.2 % (0.1-12.0); Hematocrit 42.4 % (37.0-47.0); Hemoglobin 13.9 g/dL (12.2-16.2); Lymphocytes # 1.3 K/mm3 (0.7-4.5); Lymphocytes % 25.9 % (10-50); Mean Corpuscular HGB Conc 32.8 g/dL (31.8-35.4); Mean Corpuscular Hemoglobin 28.9 pg (27.0-31.2); Mean Corpuscular Volume 88.2 fl (81-99); Mean Platelet Volume 7.9 fl (7.4-10.4); Monocytes # 0.2 K/mm3 (0.1-1.0); Monocytes % 4.2 % (1.7-9.3); Neutrophils # 3.3 K/mm3 (1.8-7.8); Neutrophils % 68.1 % (37.0-80.0); Platelet Count 257 K/mm3 (142-424); Red Blood Count 4.81 M/mm3 (4.20-5.40); Red Cell Distribution Width 13.3 % (11.5-17.5); White Blood Count 4.9 K/mm3 (4.8-10.8)
[2022-11-08 12:17] LABS: Chloride 102 mmol/L (98-107)
[2022-11-08 12:18] LABS: Potassium 3.8 mmoL/L (3.5-5.1); Sodium 142 mmol/L (136-145)
[2022-11-08 12:20] LABS: Alanine Aminotransferase 28 U/L (12-78); Alkaline Phosphatase 71 U/L (38-126); Anion Gap 14.8 mEq/L (5-15); Aspartate Amino Transferase 36 U/L (14-36); Bilirubin,Total 0.4 mg/dl (0.2-1.3); Blood Urea Nitrogen 18 mg/dl (7-17); Carbon Dioxide 29 mmol/L (22.0-30.0); Creatinine Clearance Estimated 84 mL/min (50-200); Estimated Glomerular Filt Rate 85 ml/min (>60); GFR (African American) 103 ML/MIN (>60); Lipase 16 U/L (23-300)
[2022-11-08 12:21] LABS: Albumin Level 3.9 g/dl (3.5-5.0); Albumin/Globulin Ratio 1.1 (1.1-1.8); Calcium 9.2 mg/dl (8.4-10.2); Globulin 3.6 g/dL (1.3-3.2); Glucose 131 mg/dl (74-100); Total Protein,Serum 7.5 g/dl (6.3-8.2)
[2022-11-08 12:23] LABS: Lactic Acid 1.9 mmol/L (0.7-2.1)
[2022-11-08 13:01] VITALS: BP 140/83; PULSE 88; O2SAT 98
[2022-11-08 13:07] LABS: Microscopic, Urine URINE MICROSCOPIC (MICROSCOPIC)
[2022-11-08 13:10] LABS: Appearance,Urine CLOUDY (Clear); Bilirubin,Urine Negative (Negative); Blood, Urine 3+ (Negative); Color,Urine YELLOW (Yellow); Glucose,Urine (UA) Negative (Negative); Ketones,Urine TRACE (Negative); Leukocyte Esterase,Urine 1+ (Negative); Nitrate,Urine Negative (Negative); PH,Urine 8.5 (5.0-8.5); Protein,Urine 2+ (Negative); Urobilinogen,Urine 0.2 EU/dl (0.2)
[2022-11-08 13:31] VITALS: BP 169/90; PULSE 84; O2SAT 98
[2022-11-08 13:32] LABS: RBC,Urine TNTC #/hpf (0-3); Squamous Epithelial Cell,Urine Occasional #/hpf (0-5); WBC,Urine 20-50 #/hpf (0-3)
--- NOTE | 2022-11-08 13:38 | PC.NURSE ---
ALLYSON Nielsen rounded on patient. Patient had a large BM and new brief was placed. Call light within reach.
--- NOTE | 2022-11-08 14:17 | PC.NURSE ---
Pt's BRIGIDO Leos called for an updated, she updated on results thus far and awaiting radiology results.
--- NOTE | 2022-11-08 14:59 | HMH.EDGENADL ---
Discharge Plan Disposition Patient Disposition: Xfer SNF Condition: Good Prescriptions Prescriptions: New ciprofloxacin HCl 500 mg tablet 500 mg PO BID Qty: 14 0RF No Action diazepam 2 mg tablet 2 mg PO HS PRN (Reason: Anxiety) famotidine 40 mg tablet 40 mg PO DAILY naproxen 500 mg tablet,delayed release (DR/EC) 500 mg PO BID venlafaxine 75 mg capsule,extended release 24hr 75 mg PO DAILY trazodone 150 mg tablet 150 mg PO DAILY budesonide-formoterol [Symbicort] 160-4.5 mcg/actuation HFA aerosol inhaler 2 puff inhalation BID 90 Days Qty: 10.2 3RF Spiriva with HandiHaler 18 mcg capsule, w/inhalation device 1 cap inhalation DAILY 90 Days Qty: 90 3RF Rx Instructions: puncture 1 cap using device; one dose = 2 inhalations albuterol sulfate 90 mcg/actuation HFA aerosol inhaler 2 inh inhalation QID PRN (Reason: shortness of breath or wheezing) 90 Days Qty: 8.5 2RF fentanyl 50 mcg/hr patch 72 hour 1 patch TD Q72H Qty: 10 0RF docusate calcium 240 MG capsule 240 mg PO DAILY tiotropium bromide 5 CAP capsule, w/inhalation device 2 cap inhalation DAILY clopidogrel 75 MG tablet 75 mg PO DAILY gabapentin 400 MG capsule 800 mg PO TID tramadol 50 MG tablet 50 mg PO Q6 PRN (Reason: Moderate Pain) promethazine 25 MG tablet 25 mg PO Q6 PRN (Reason: Nausea And Vomiting) polyethylene glycol 3350 17 GM powder in packet 17 g PO DAILY albuterol sulfate 8.5 GM HFA aerosol inhaler 2 puffs inhalation Q4HP PRN (Reason: Shortness Of Breath Or Wheezing) Referrals Follow up/Referrals: Maurizio Escobedo MD [Primary Care Provider] - See instructions Activity Restrictions/Add. Instructions Additional Instructions/Restrictions: You were evaluated in the emergency department today. At this time, we feel that your symptoms are likely related to a persistent urinary tract infection. Please fruit or nut picker the prescription for antibiotics at the pharmacy and take them as prescribed. Follow-up with your primary care provider for reassessment. I also recommend follow-up with urology. Clinical Impressions Clinical Impression: Transient alteration of awareness, Bladder stone UTI (urinary tract infection) Qualifiers: Urinary tract infection type: acute cystitis Hematuria presence: without hematuria Qualified Code(s): N30.00 - Acute cystitis without hematuria Instructions Patient Instructions: DI for Urinary Tract Infection (UTI), DI for Altered Mental Status Discharge ED Provider: Marge Chery General Adult HPI General Chief complaint: Altered Mental Status Stated complaint: weakness Time Seen by Provider: 11/08/22 11:43 Mode of Arrival: EMS Source of Information: Patient Limitations: No Limitations Description of Symptoms (Recalled from ER Triage Doc. by RN): 61 yo F presents to ED with c/o altered mental status and recurrent UTI. pt was diagnosed with UTI and did have abx, but pt continues with confusion. History of Present Illness HPI narrative: This patient is a 61-year-old female with a history of chronic respiratory failure, extensive smoking history, recurrent urinary tract infections, and baseline cognitive and physical disability requiring her to live in a custodial presenting from custodial with concerns for worsening of her altered mental status. She was diagnosed with UTI and completed a course of cefdinir, however the confusion worsened today. No fevers, vomiting, or other concerns noted. On exam, patient is disoriented but only complains of abdominal pain. Related Data Home Medications Medication Instructions Recorded Confirmed albuterol sulfate 90 mcg/actuation 2 puffs inhalation Q4HP PRN 02/12/18 05/17/22 aerosol inhaler Shortness Of Breath Or Wheezing gabapentin 400 mg capsule 800 mg PO TID Pain 02/12/18 05/17/22 polyethylene glycol 3350 17 gram 17 g PO DAILY unknown 02/12/18 05/17/22 oral powder
[2022-11-08 15:49] VITALS: BP 138/95; PULSE 95; RESP 20; TEMP 37; O2SAT 95
== END 2022-11-08 15:50 ==
PROVIDERS: Emergency Provider Emergency Medicine; PCP Family Medicine
DX: R41.82 Altered mental status, unspecified (principal); N30.00 Acute cystitis without hematuria; N21.0 Calculus in bladder; J44.9 Chronic obstructive pulmonary disease, unspecified; J96.11 Chronic respiratory failure with hypoxia; Z87.891 Personal history of nicotine dependence
CPT/HCPCS: 70450; 71045; 74177; 80053; 81001; 83605; 83690; 85025; 87086; 87088; 87186; 93005; 99285; Q9967

== ENCOUNTER → 2022-11-14 14:01 | Outpatient (CLI) | payer MEDICAID, SELFPAY ==
--- NOTE | 2022-11-14 14:01 | CT_ITS ---
FINAL REPORT TECHNIQUE: Axial images were obtained from the lung apex to the mid abdomen by computed tomography. This study was performed with techniques to keep radiation doses as low as reasonably achievable (ALARA). Individualized dose reduction techniques using automated exposure control or adjustment of mA and/or kV according to the patient's size were employed. CLINICAL HISTORY: lung cancer screening previous smoker, quit 6 years ago, smoked 13 cigs per day x 43 years COMPARISON: 11/07/2021 FINDINGS: CHEST CT LOW DOSE CTDI vol (mGy): 2.90 DLP (mGy-cm): 112.81 There is no axillary adenopathy. There is no hilar or mediastinal adenopathy. The heart is normal in size. There is no pericardial or pleural effusion. There is moderate emphysema. Mild scarring is identified. There has been interval improvement in the opacity in the posterior left upper thorax. There is an 8 mm nodule in the right lung base which is new since prior. Limited images of the upper abdomen reveal an 8 mm right renal stone. IMPRESSION: New 8 mm right lung base nodule. Interval improvement in the opacity in the left upper thorax. Lung RADS category 4A. Recommend PET-CT and/or follow-up CT in 3 months. Reviewed, Interpreted and Dictated by Gerry Mejia III, MD Transcribed by Marianna Go Authenticated and [facility]
== END ==
PROVIDERS: PCP Family Medicine; Visit Provider Internal Medicine Pulmonary Disease
DX: F17.210 Nicotine dependence, cigarettes, uncomplicated (principal); Z12.2 Encounter for screening for malignant neoplasm of respiratory organs
CPT/HCPCS: 71271

== ENCOUNTER 2022-11-29 01:19 | Emergency (ER) | payer MEDICAID, SELFPAY ==
[2022-11-29 01:19] VITALS: BP 133/85; PULSE 88; RESP 20; TEMP 36.7; O2SAT 98; BMI 27.6
[2022-11-29 01:22] VITALS: BP 133/85; PULSE 97; RESP 20; O2SAT 95
--- NOTE | 2022-11-29 01:23 | XR_ITS ---
PROCEDURE INFORMATION: Exam: XR Right Hip Exam date and time: 11/29/2022 1:52 AM Age: 62 years old Clinical indication: Injury or trauma; Fall; Blunt trauma (contusions or hematomas); Right; Hip; Additional info: Fall, RT hip pain TECHNIQUE: Imaging protocol: Radiologic exam of the right hip. Views: 2 or 3 views hip with pelvis when performed. Total images: 3 COMPARISON: CT ABDOMEN PELVIS W CON 11/08/2022 12:48 PM FINDINGS: Bones/joints: Osteopenia. No acute fracture or joint dislocation. Bilateral hips appear symmetric and age appropriate. No significant degenerative arthropathy. Pelvic ring is maintained. No concerning bone lesions. Soft tissues: Unremarkable soft tissues. Gastrointestinal tract: Large colonic and rectal stool burden. IMPRESSION: 1. Negative right hip and pelvis. 2. If concern for occult fracture, recommend follow-up MRI or CT.
--- NOTE | 2022-11-29 01:24 | CT_ITS ---
PROCEDURE INFORMATION: Exam: CT Head Without Contrast Exam date and time: 11/29/2022 1:48 AM Age: 62 years old Clinical indication: Injury or trauma; Fall; Additional info: Fall on plavix TECHNIQUE: Imaging protocol: Computed tomography of the head without contrast. Total images: 279 Radiation optimization: All CT scans at this facility use at least one of these dose optimization techniques: automated exposure control; mA and/or kV adjustment per patient size (includes targeted exams where dose is matched to clinical indication); or iterative reconstruction. REPORTING DATA: Count of CT and Cardiac NM exams in prior 12 months: This patient has received 5 known CTs and 0 known cardiac nuclear medicine studies in the 12 months prior to the current study. COMPARISON: CT HEAD/BRAIN WO CON 11/08/2022 12:43 PM FINDINGS: Brain: No acute intracranial hemorrhage, midline shift, or mass. Mild cortical atrophy. Mild periventricular and scattered subcortical white matter hypodensity compatible with remote small vessel ischemic changes. Francisco-white interface is maintained. Basilar cisterns are preserved. Cerebral ventricles: Mild ventriculomegaly compatible degree of central atrophy. Paranasal sinuses: 15 mm retention cyst base of the right maxillary sinus. Mastoid air cells: Visualized mastoid air cells are well aerated. Orbital cavities: Status post bilateral orbital lens replacement. Bones/joints: Osteopenia. No skull fracture. Soft tissues: Unremarkable. Vasculature: Moderate calcifications bilateral intracranial internal carotid arteries. IMPRESSION: 1. No acute intracranial process. 2. Stable chronic findings. 3. No significant change from November 08, 2022.
--- NOTE | 2022-11-29 01:25 | HMH.EDGENADL ---
Discharge Plan Disposition Patient Disposition: Xfer SNF Condition: Good Prescriptions Prescriptions: No Action diazepam 2 mg tablet 2 mg PO HS PRN (Reason: Anxiety) famotidine 40 mg tablet 40 mg PO DAILY naproxen 500 mg tablet,delayed release (DR/EC) 500 mg PO BID venlafaxine 75 mg capsule,extended release 24hr 75 mg PO DAILY trazodone 150 mg tablet 150 mg PO DAILY albuterol sulfate 90 mcg/actuation HFA aerosol inhaler 2 inh inhalation QID PRN (Reason: shortness of breath or wheezing) 90 Days Qty: 8.5 2RF Trelegy Ellipta 100-62.5-25 mcg blister with device 1 inh inhalation DAILY 90 Days Qty: 90 3RF fentanyl 50 mcg/hr patch 72 hour 1 patch TD Q72H Qty: 10 0RF docusate calcium 240 MG capsule 240 mg PO DAILY tiotropium bromide 5 CAP capsule, w/inhalation device 2 cap inhalation DAILY clopidogrel 75 MG tablet 75 mg PO DAILY gabapentin 400 MG capsule 800 mg PO TID tramadol 50 MG tablet 50 mg PO Q6 PRN (Reason: Moderate Pain) promethazine 25 MG tablet 25 mg PO Q6 PRN (Reason: Nausea And Vomiting) polyethylene glycol 3350 17 GM powder in packet 17 g PO DAILY albuterol sulfate 8.5 GM HFA aerosol inhaler 2 puffs inhalation Q4HP PRN (Reason: Shortness Of Breath Or Wheezing) ciprofloxacin HCl 500 mg tablet 500 mg PO BID Qty: 14 0RF Referrals Follow up/Referrals: Provider,Referral, MD [Primary Care Provider] - See instructions Activity Restrictions/Add. Instructions Additional Instructions/Restrictions: You were evaluated in the emergency department today after a fall from bed. You do not have any fracture or other injury to the right hip. You do not have any bleeding in the brain. I am reassured by her exam and imaging. You are safe for discharge at this time. Continue taking all home medications as previously prescribed, follow-up with your primary care physician in the next 2 to 3 days for reevaluation. Return to the emergency department with any new or worsening symptoms. Clinical Impressions Clinical Impression: Acute pain of right hip Fall Qualifiers: Encounter type: initial encounter Qualified Code(s): W19.XXXA - Unspecified fall, initial encounter Discharge ED Provider: Rachele Lau Adult [facility] General Chief complaint: Fall Stated complaint: fall Time Seen by Provider: 11/29/22 01:23 History of Present Illness HPI narrative: This 62-year-old female who is bedbound at baseline with a history of multiple lung problems including COPD presents to the emergency department after a fall from her bed in the skilled nursing. Fall was unwitnessed. Patient states she bumped her head but did not lose consciousness. Patient takes Plavix. She is complaining of right hip pain. Patient reports she was trying to get out of bed and get her aide to get her some water, patient has not walked in years. Patient is at her baseline mental status which is alert but pleasantly confused. EMS provides majority of history and states they are familiar with her and she is at baseline at this time. They report that patient was laying on a power strip under the right hip which may have been the cause of her pain. Related Data Home Medications Medication Instructions Recorded Confirmed albuterol sulfate 90 mcg/actuation 2 puffs inhalation Q4HP PRN 02/12/18 11/14/22 aerosol inhaler Shortness Of Breath Or Wheezing gabapentin 400 mg capsule 800 mg PO TID Pain 02/12/18 11/14/22 polyethylene glycol 3350 17 gram 17 g PO DAILY unknown 02/12/18 11/14/22 oral powder packet promethazine 25 mg tablet 25 mg PO Q6 PRN Nausea And Vomiting 02/12/18 11/14/22 tramadol 50 mg tablet 50 mg PO Q6 PRN Moderate Pain 02/12/18 11/14/22 diazepam 2 mg tablet 2 mg PO HS PRN Anxiety 08/29/20 11/14/22 famotidine 40 mg tablet 40 mg PO DAILY GERD 08/29/20 11/14/22 naproxen 500 mg tablet,delayed 500 mg PO BID Pain 08/29/20 11/14/22 release trazo
[2022-11-29 01:30] VITALS: BP 131/93; PULSE 92; RESP 18; O2SAT 95
[2022-11-29 02:00] VITALS: BP 111/84; PULSE 96; RESP 20; O2SAT 96
[2022-11-29 02:47] VITALS: BP 130/78; PULSE 94; RESP 19; TEMP 36.7; O2SAT 96
== END 2022-11-29 03:16 ==
PROVIDERS: Emergency Provider Emergency Medicine
DX: M25.551 Pain in right hip (principal); J44.9 Chronic obstructive pulmonary disease, unspecified; J96.11 Chronic respiratory failure with hypoxia; Z87.891 Personal history of nicotine dependence; Z74.01 Bed confinement status; Z79.02 Long term (current) use of antithrombotics/antiplatelets; W06.XXXA Fall from bed, initial encounter
CPT/HCPCS: 70450; 73502; 99284

== ENCOUNTER 2023-01-08 06:22 | Inpatient (IN) | payer MEDICAID, SELFPAY ==
[2023-01-08] VITALS (26 sets, daily range): BP systolic 89–131; BP diastolic 60–77; PULSE 80–123; RESP 12–27; TEMP 37.1–37.8; O2SAT 87–100; BMI 30.5; BMI 28.4
--- NOTE | 2023-01-08 06:24 | XR_ITS ---
FINAL REPORT CLINICAL HISTORY: ams, hypoxia COMPARISON: 11/08/2022 FINDINGS: A portable view of the chest was obtained. The patient is rotated. The heart size is stable. Prominent mediastinum is stable.. Emphysema is noted. There is no focal infiltrate, effusion, or pneumothorax. IMPRESSION: No acute process on this portable exam. Reviewed, Interpreted and Dictated by Suzie Gonzalez MD Transcribed by Giuliana Flores Authenticated and [facility]
--- NOTE | 2023-01-08 06:25 | CT_ITS ---
FINAL REPORT TECHNIQUE: Thin section axial CT with IV contrast supplemented with multiplanar reconstruction under CT angiogram protocol. This study was performed with techniques to keep radiation doses as low as reasonably achievable (ALARA). Individualized dose reduction techniques using automated exposure control or adjustment of mA and/or kV according to the patient''s size were employed. NASCET criteria was utilized during interpretation. CLINICAL HISTORY: facial droop, ams FINDINGS: Aortic arch: Arch shows no significant narrowing. Great vessel origins are widely patent. Right carotid: There is calcified plaque at the bulb with no stenosis. Left carotid: There is calcified plaque at the bulb with no stenosis. Vertebral: The vertebral arteries are patent bilaterally. No significant stenosis is present. Other: There is small bilateral cervical lymph nodes which are nonspecific. IMPRESSION: No carotid stenosis. Reviewed, Interpreted and Dictated by Gerry Mejia III, MD Transcribed by Giuliana Flores Authenticated and [facility]
--- NOTE | 2023-01-08 06:25 | CT_ITS ---
FINAL REPORT TECHNIQUE: Thin section axial images are obtained through the brain after intravenous contrast injection. Multiplanar reconstructions were obtained from the axial data. Exam was performed using dose reduction technique per the ALARA principal. CLINICAL HISTORY: facial droop, ams FINDINGS: The intracerebral portions of the carotid arteries are patent. The anterior and middle cerebral arteries are patent. The basilar artery is patent. The left vertebral artery is dominant. The posterior cerebral arteries arise from the basilar artery. [place] is intact. There is no significant stenosis, aneurysm, or AVM. IMPRESSION: Unremarkable CT angiogram of the intracerebral vasculature. Reviewed, Interpreted and Dictated by Suzie Gonzalez MD Transcribed by Giuliana Flores Authenticated and [facility]
--- NOTE | 2023-01-08 06:25 | CT_ITS ---
FINAL REPORT TECHNIQUE: Thin section axial images were obtained from skull base to vertex without contrast. Coronal reconstruction images were obtained from the axial data. Exam was performed using dose reduction technique. CLINICAL HISTORY: ams COMPARISON: 11/29/2022 FINDINGS: There is age-appropriate atrophy. There is no mass effect or midline shift. There is no intracranial hemorrhage. There is no hydrocephalus. Periventricular low density is likely related to changes of chronic small vessel ischemia. The basilar cisterns are preserved. The posterior fossa is without acute abnormality. The soft tissues are without acute abnormality. No acute osseous abnormality is identified. IMPRESSION: No acute intracranial abnormality. Atrophy and changes suggesting chronic small vessel ischemia. Reviewed, Interpreted and Dictated by Suzie Gonzalez MD Transcribed by Giuliana Flores Authenticated and [facility]
--- NOTE | 2023-01-08 06:25 | ECG_ITS ---
APPROVED REPORT Exam: Resting ECG HR:122 bpm ECG Measurements Heart Rate 122 AXES NJ 160 P 84 QRSd 80 QRS 53 QT 345 T 89 QTc 418 Conclusion SINUS TACHYCARDIA ABNORMAL RHYTHM ECG UNCONFIRMED REPORT Electronically signed by : Jarrell Lock MD 01/09/2023 21:14:31
--- NOTE | 2023-01-08 06:34 | HMH.EDGENADL ---
Discharge Plan Disposition Patient Disposition: Admitted Chief Complaint: Altered Mental Status Prescriptions Prescriptions: No Action diazepam 2 mg tablet 2 mg PO HS PRN (Reason: Anxiety) famotidine 40 mg tablet 40 mg PO DAILY naproxen 500 mg tablet,delayed release (DR/EC) 500 mg PO BID venlafaxine 75 mg capsule,extended release 24hr 75 mg PO DAILY trazodone 150 mg tablet 150 mg PO DAILY albuterol sulfate 90 mcg/actuation HFA aerosol inhaler 2 inh inhalation QID PRN (Reason: shortness of breath or wheezing) 90 Days Qty: 8.5 2RF Trelegy Ellipta 100-62.5-25 mcg blister with device 1 inh inhalation DAILY 90 Days Qty: 90 3RF fentanyl 50 mcg/hr patch 72 hour 1 patch TD Q72H Qty: 10 0RF docusate calcium 240 MG capsule 240 mg PO DAILY tiotropium bromide 5 CAP capsule, w/inhalation device 2 cap inhalation DAILY clopidogrel 75 MG tablet 75 mg PO DAILY gabapentin 400 MG capsule 800 mg PO TID tramadol 50 MG tablet 50 mg PO Q6 PRN (Reason: Moderate Pain) promethazine 25 MG tablet 25 mg PO Q6 PRN (Reason: Nausea And Vomiting) polyethylene glycol 3350 17 GM powder in packet 17 g PO DAILY albuterol sulfate 8.5 GM HFA aerosol inhaler 2 puffs inhalation Q4HP PRN (Reason: Shortness Of Breath Or Wheezing) ciprofloxacin HCl 500 mg tablet 500 mg PO BID Qty: 14 0RF Referrals Follow up/Referrals: Provider,Referral, MD [Primary Care Provider] - See instructions Clinical Impressions Clinical Impression: Severe sepsis, UTI (urinary tract infection), Hypoxic respiratory failure Instructions Patient Instructions: DI for Altered Mental Status Discharge ED Provider: David Yepez General Adult HPI <David Yepez MD - Last Filed: 01/08/23 06:57> General Chief complaint: Altered Mental Status Stated complaint: AMS Time Seen by Provider: 01/08/23 06:25 History of Present Illness HPI narrative: 62-year-old female, history of dementia, COPD, intermediate resident at [facility] presents with altered mental status. Per nursing facility, patient's last known normal was 11 PM. They tried to wake her at 2 PM but she was not particularly responsive. They again awoke her shortly prior to arrival and noted that she may have a facial droop as well as being generally unresponsive. Per EMS, patient was in the 80s on a nonrebreather at the facility. Noted to be tachycardic and hypotensive. Patient is unable to provide any history of events. Patient is DNR. Related Data Home Medications Medication Instructions Recorded Confirmed albuterol sulfate 90 mcg/actuation 2 puffs inhalation Q4HP PRN 02/12/18 11/14/22 aerosol inhaler Shortness Of Breath Or Wheezing gabapentin 400 mg capsule 800 mg PO TID Pain 02/12/18 11/14/22 polyethylene glycol 3350 17 gram 17 g PO DAILY unknown 02/12/18 11/14/22 oral powder packet promethazine 25 mg tablet 25 mg PO Q6 PRN Nausea And Vomiting 02/12/18 11/14/22 tramadol 50 mg tablet 50 mg PO Q6 PRN Moderate Pain 02/12/18 11/14/22 diazepam 2 mg tablet 2 mg PO HS PRN Anxiety 08/29/20 11/14/22 famotidine 40 mg tablet 40 mg PO DAILY GERD 08/29/20 11/14/22 naproxen 500 mg tablet,delayed 500 mg PO BID Pain 08/29/20 11/14/22 release trazodone 150 mg tablet 150 mg PO DAILY Anxiety 08/29/20 11/14/22 venlafaxine 75 mg capsule,extended 75 mg PO DAILY Anxiety 08/29/20 11/14/22 release 24 hr docusate calcium 240 mg capsule 240 mg PO DAILY bowels 06/13/21 11/14/22 tiotropium bromide 18 mcg capsule 2 cap inhalation DAILY COPD 06/13/21 11/14/22 with inhalation device clopidogrel 75 mg tablet 75 mg PO DAILY dvt 06/27/21 11/14/22 Previous Rx's Medication Instructions Recorded fentanyl 50 mcg/hr transdermal 1 patch transdermal Q72H #10 ea 08/29/21 patch albuterol sulfate 90 mcg/actuation 2 inh inhalation QID PRN shortness 05/17/22 aerosol inhaler of breath or wheezing 90 days #8.5 grams c
[2023-01-08 06:38] LABS: Basophils # 0.1 K/mm3 (0-0.2); Basophils % 0.5 % (0.1-2.0); Eosinophils # 0.3 K/mm3 (0.0-0.4); Eosinophils % 2.6 % (0.1-12.0); Hematocrit 40.5 % (37.0-47.0); Hemoglobin 13.8 g/dL (12.2-16.2); Lymphocytes # 1.5 K/mm3 (0.7-4.5); Lymphocytes % 12.6 % (10-50); Mean Corpuscular HGB Conc 34.1 g/dL (31.8-35.4); Mean Corpuscular Hemoglobin 30.3 pg (27.0-31.2); Mean Corpuscular Volume 88.8 fl (81-99); Mean Platelet Volume 7.8 fl (7.4-10.4); Monocytes # 0.6 K/mm3 (0.1-1.0); Monocytes % 5.3 % (1.7-9.3); Neutrophils # 9.1 K/mm3 (1.8-7.8); Neutrophils % 78.9 % (37.0-80.0); Platelet Count 246 K/mm3 (142-424); Red Blood Count 4.56 M/mm3 (4.20-5.40); Red Cell Distribution Width 13.6 % (11.5-17.5); White Blood Count 11.6 K/mm3 (4.8-10.8)
[2023-01-08 06:44] LABS: Microscopic, Urine URINE MICROSCOPIC (MICROSCOPIC)
--- NOTE | 2023-01-08 06:45 | PC.NURSE ---
Temperature sensing dubose catheter placed by Chen Vázquez RN utilizing sterile technique. 16 F, dark yellow urine output. UA collected and sent to lab. Dubose anchor placed.
[2023-01-08 06:49] LABS: Alanine Aminotransferase 28 U/L (12-78); Albumin Level 3.8 g/dl (3.5-5.0); Albumin/Globulin Ratio 1.1 (1.1-1.8); Alkaline Phosphatase 87 U/L (38-126); Anion Gap 13.4 mEq/L (5-15); Aspartate Amino Transferase 35 U/L (14-36); Bilirubin,Total 0.5 mg/dl (0.2-1.3); Blood Urea Nitrogen 22 mg/dl (7-17); Calcium 9.2 mg/dl (8.4-10.2); Carbon Dioxide 31 mmol/L (22.0-30.0); Chloride 98 mmol/L (98-107); Creatinine Clearance Estimated 80 mL/min (50-200); Estimated Glomerular Filt Rate 72 ml/min (>60); GFR (African American) 88 ML/MIN (>60); Globulin 3.6 g/dL (1.3-3.2); Glucose 133 mg/dl (74-100); INR 1.06 (0.9-1.1); Potassium 4.4 mmoL/L (3.5-5.1); Prothrombin Time 11.4 seconds (10.1-12.5); Sodium 138 mmol/L (136-145); Total Protein,Serum 7.4 g/dl (6.3-8.2)
[2023-01-08 06:50] LABS: Magnesium 1.9 mg/dl (1.6-2.3)
[2023-01-08 06:56] LABS: D-Dimer 0.81 ug/mL (0.0-0.5)
[2023-01-08 06:57] LABS: Lipase < 10 U/L (23-300)
[2023-01-08 06:58] LABS: NT Pro Brain Natriuretic Pep. 33.6 pg/mL (0-125)
[2023-01-08 07:01] LABS: Appearance,Urine SL CLOUDY (Clear); Blood, Urine 3+ (Negative); Color,Urine OTHER (Yellow); Glucose,Urine (UA) Negative (Negative); Ketones,Urine TRACE (Negative); Leukocyte Esterase,Urine 2+ (Negative); Nitrate,Urine POSITIVE (Negative); Protein,Urine 3+ (Negative); Specific Gravity, Urine 1.025 (1.005-1.030)
[2023-01-08 07:02] LABS: Lactic Acid 1.5 mmol/L (0.7-2.1)
[2023-01-08 07:08] LABS: Troponin I < 0.01 ng/ml (0.00-0.034)
[2023-01-08 07:11] LABS: Bilirubin,Urine Negative (Negative)
[2023-01-08 07:20] LABS: Bacteria,Urine 1+ /lpf
[2023-01-08 08:22] LABS: Benzodiazepines Screen,Urine Positive ng/ml (<200)
[2023-01-08 08:23] LABS: Amphetamine/Metha Screen,Urine Negative ng/ml (<1000)
[2023-01-08 08:24] LABS: Barbiturates Screen,Urine Negative ng/ml (<200)
[2023-01-08 08:25] LABS: Cannabinoid Screen,Urine Negative ng/ml (<50)
[2023-01-08 08:27] LABS: Opiate Screen,Urine Negative ng/ml (<300)
[2023-01-08 08:28] LABS: Phencyclidine Screen,Urine Negative ng/ml (<25)
[2023-01-08 08:43] LABS: VBG Base Excess -0.1 mmol/L (-2.4-2.3); VBG HCO3 25.6 mmol/L (23-30); VBG Oxygen Saturation 96.7 % (50-70); VBG PCO2 47.9 mmol/L (35-51); VBG PH 7.35 mmol/L (7.31-7.41); VBG PO2 87.3 mmol/L (28-40); VBG Total CO2 27.1 mmol/L (23-27)
--- NOTE | 2023-01-08 08:44 | CT_ITS ---
FINAL REPORT TECHNIQUE: Axial imaging of the chest is obtained after the administration of contrast. 3-D MIP reformatted images were also obtained and reviewed per PE protocol. CLINICAL HISTORY: hypoxic respiratory FINDINGS: The pulmonary arteries are well filled. There is no evidence of pulmonary embolus. There is no aortic dissection or intimal flap. There is no mediastinal, hilar, or axillary lymphadenopathy. There are emphysematous changes. There is complete collapse of the left lower lobe. There is a groundglass and airspace disease in the posterior lingula. There are slightly nodular right lower lobe opacities favoring pneumonia. There is no pleural or pericardial effusion. Limited evaluation of the upper abdomen is without acute abnormality. No acute osseous abnormality. IMPRESSION: No evidence of pulmonary embolism or aortic dissection. Collapse of the left lower lobe. Lingular and right lower lobe pneumonia. Reviewed, Interpreted and Dictated by Suzie Gonzalez MD Transcribed by David Rosales Authenticated and [facility]
--- NOTE | 2023-01-08 08:49 | PC.NURSE ---
Case Management called for bed assignment.
--- NOTE | 2023-01-08 08:53 | PC.NURSE ---
Stood at bs Along with Shawna and to retrieve a stool panel
--- NOTE | 2023-01-08 09:21 | PC.NURSE ---
Report given to Jessy on Med Surg.
--- NOTE | 2023-01-08 09:26 | EXP.PHA.CONS ---
Pharmacy Consult Date: 01/08/23 Time: 09:27 Referring provider: DR MUHAMMAD Reason for Consult:: VANCOMYCIN DOSING CONSULT Allergies Allergy/AdvReac Type Severity Reaction Status Date / Time codeine [CODEINE] Allergy Mild Verified 11/29/22 01:42 latex [LATEX] Allergy Mild Verified 11/29/22 01:42 Home Medications Medication Instructions Recorded Confirmed Type gabapentin 400 mg capsule 800 mg PO TID Pain 02/12/18 01/08/23 History polyethylene glycol 3350 17 gram 17 g PO DAILY unknown 02/12/18 01/08/23 History oral powder packet tramadol 50 mg tablet 50 mg PO Q6 PRN Moderate Pain 02/12/18 01/08/23 History diazepam 2 mg tablet 5 mg PO BID 08/29/20 01/08/23 History famotidine 40 mg tablet 40 mg PO DAILY GERD 08/29/20 01/08/23 History naproxen 500 mg tablet,delayed 500 mg PO BID Pain 08/29/20 01/08/23 History release trazodone 150 mg tablet 150 mg PO DAILY Anxiety 08/29/20 01/08/23 History venlafaxine 75 mg capsule,extended 75 mg PO DAILY Anxiety 08/29/20 01/08/23 History release 24 hr docusate calcium 240 mg capsule 240 mg PO DAILY bowels 06/13/21 01/08/23 History clopidogrel 75 mg tablet 75 mg PO DAILY dvt 06/27/21 01/08/23 History fentanyl 50 mcg/hr transdermal 1 patch transdermal Q72H #10 ea 08/29/21 01/08/23 Rx patch New Prescriptions to Start Prescriptions: Height: 1.7 m Weight: 88.451 kg Laboratory Results:: Laboratory Results - last 24 hr 01/08/23 06:27: WBC 11.6 H, RBC 4.56, Hgb 13.8, Hct 40.5, MCV 88.8, MCH 30.3, MCHC 34.1, RDW 13.6, Plt Count 246, MPV 7.8, Neut % (Auto) 78.9, Lymph % (Auto) 12.6, [place] % (Auto) 5.3, Eos % (Auto) 2.6, Baso % (Auto) 0.5, Neut # (Auto) 9.1 H, Lymph # (Auto) 1.5, [place] # (Auto) 0.6, Eos # (Auto) 0.3, Baso # (Auto) 0.1, PT 11.4, INR 1.06, D-Dimer 0.81 H, Sodium 138, Potassium 4.4, Chloride 98, Carbon Dioxide 31 H, Anion Gap 13.4, BUN 22 H, Creatinine 0.80, Estimated Creat Clear 80, Estimated GFR 72, Est GFR ( Amer) 88, Glucose 133 H, Calcium 9.2, Magnesium 1.9, Total Bilirubin 0.5, AST 35, ALT 28, Alkaline Phosphatase 87, Troponin I < 0.01, NT-Pro-B Natriuret Pep 33.6, Total Protein 7.4, Albumin 3.8, Globulin 3.6 H, Albumin/Globulin Ratio 1.1, Lipase < 10 L 01/08/23 06:28: VBG pH 7.35, VBG pCO2 47.9, VBG pO2 87.3 H, VBG HCO3 25.6, VBG Total CO2 27.1 H, VBG O2 Saturation 96.7 H, VBG Base Excess -0.1 01/08/23 06:35: Lactate 1.5 01/08/23 06:39: Urine Color Other, Urine Appearance Sl cloudy, Urine pH 8.0, Ur Specific [place] 1.025, Urine Protein 3+, Urine Glucose (UA) Negative, Urine Ketones Trace, Urine Blood 3+, Urine Nitrate Positive, Urine Bilirubin Negative, Urine Urobilinogen 1.0, Ur Leukocyte Esterase 2+ A, Urine RBC 10-20, Urine WBC 10-20, Ur Squamous Epith Cells 5-10, Urine Bacteria 1+, Urine Opiates Screen Negative, Ur Barbituates Screen Negative, Ur Phencyclidine Scrn Negative, Ur Amphetamines Screen Negative, U Benzodiazepines Scrn Positive H, U Marijuana (THC) Screen Negative Medical History: Medical History Chronic hypoxemic respiratory failure COPD (chronic obstructive pulmonary disease) Dyspnea on exertion Exertional shortness of breath Multiple pulmonary nodules Other nonspecific abnormal finding of lung field Pulmonary emphysema Screening for lung cancer Shortness of breath Stopped smoking with greater than 30 pack year history Assessment and Plan Assessment and plan all Dx Assessment and Plan for all problems:: Pharmacokinetic dosing service Objective: Age: 62 yo Serum creatinine: 0.8 mg/dL Height: 67.0 Inches Weight (kg): 88.451 Diagnosis: SEPSIS Assessment: IBW (kg): 61.60 Dosing wt(kg): 88.451 Estimated Creatinine clearance (ml/min): 70.0 CRCL method: Cockcroft and Gault using ibw(default). Drug selected: Vancomycin Loading dose (mg): 1750 MG Vd (liters): 61.9 (factor used: 0.7 L/kg) Hernan (hr-1): 0.062 [facility]
[2023-01-08 09:31] LABS: Methadone Screen,Urine Negative ng/ml (<300)
[2023-01-08 09:32] LABS: Cocaine Screen,Urine Negative ng/ml (<300)
--- NOTE | 2023-01-08 10:45 | PC.NURSE ---
Called Daina FOFANA - step-daughter. Verified patient is a DNR, verified with [facility]. Consent signed.
[2023-01-08 10:54] LABS: Troponin I < 0.01 ng/ml (0.00-0.034)
--- NOTE | 2023-01-08 11:09 | PC.NURSE ---
Patient oriented to self. Unable to discuss patient portal information.
--- NOTE | 2023-01-08 12:30 | PC.NURSE ---
Fentanyl patch placed to right shoulder.
--- NOTE | 2023-01-08 12:32 | PC.NURSE ---
Called ER nurse, Nan to ask about administration of 1850 LR fluid bolus. The nurse states, I'm not sure but she did have 2L hanging I think. When patient was picked up from the ER she did have a 1L bag of LR that had infused connected to her RAC IV. The bag was dry.
[2023-01-08 12:48] LABS: Acetone, Serum (Rapid) None Detected (None Detect)
--- NOTE | 2023-01-08 15:14 | EXP.HP ---
History of Present Illness *Admission Date: 01/08/23 *Reason for visit:: Altered mental status *History of present illness: Ms. Salazar is a 62-year-old female who is a longtime resident at [facility]. She has a history of dementia, COPD, debility. She was found to be altered and confused this morning with last known normal at 11 PM last night. When staff tried to wake her at 2 AM she was not responsive. They thought she was sleeping. Tried to wake her again on morning change of staff and had concern for facial droop as well as being poorly responsive. EMS was contacted and she was found to be hypoxic in the 80s. Placed on a nonrebreather and brought to the ER for further evaluation. On arrival she was tachycardic, hypotensive, tachypneic. Given her respiratory distress, she was placed on BiPAP. Work-up concerning for UTI by and sepsis given her tachycardia, tachypnea, and suspected infection with urine. Medicine was consulted for admission. On arrival to the floor, patient is somnolent. Reviewed her blood gas, she is not hypercapnic. Chest imaging does not show focal pneumonia or consolidation. Transitioned to Ventimask. Wears 2 L continuously at the assisted at baseline. Unable to give any history or review of systems. [facility] Disclaimer: The information contained in this section may have been updated after the patient was seen, as this information can be updated by other users. Per chart review, unable to obtain from patient Medical History Chronic hypoxemic respiratory failure COPD (chronic obstructive pulmonary disease) Dyspnea on exertion Exertional shortness of breath Multiple pulmonary nodules Other nonspecific abnormal finding of lung field Pulmonary emphysema Screening for lung cancer Shortness of breath Stopped smoking with greater than 30 pack year history Surgical History Surgical history unknown Family History Hyperlipidemia Hypertension Social History Smoking Status: Never smoker alcohol intake: never current occupational status: disabled Travel in the last 8 weeks: None household members: none housing: house caffeine: Yes Review of Systems Review of Systems Review of systems:: unable to obtain Meds Home Medications and Allergies Home Medications Medication Instructions Recorded Confirmed Type polyethylene glycol 3350 17 gram 17 g PO DAILY Constipation 02/12/18 01/08/23 History oral powder packet famotidine 40 mg tablet 40 mg PO DAILY GERD 08/29/20 01/08/23 History naproxen 500 mg tablet,delayed 500 mg PO BID Pain 08/29/20 01/08/23 History release trazodone 150 mg tablet 150 mg PO HS Anxiety 08/29/20 01/08/23 History clopidogrel 75 mg tablet 75 mg PO DAILY Blood Thinner 06/27/21 01/08/23 History acetaminophen 500 mg tablet 500 mg PO Q4HP PRN Mild pain/fever 01/08/23 01/08/23 History acetaminophen 500 mg tablet 500 mg PO TID Pain, Mild 01/08/23 01/08/23 History albuterol sulfate 90 mcg/actuation 2 puff inhalation Q4HP PRN 01/08/23 01/08/23 History aerosol inhaler Shortness of air aluminum-mag hydroxide-simethicone 30 ml PO Q4HP PRN Gastric 01/08/23 01/08/23 History 200 mg-200 mg-20 mg/5 mL oral susp discomfort bisacodyl 10 mg rectal suppository 10 mg IN DAILYP PRN Bowel care 01/08/23 01/08/23 History cholecalciferol (vitamin D3) 50 50 mcg PO DAILY Supplement 01/08/23 01/08/23 History mcg (2,000 unit) tablet (Vitamin D3) cranberry extract 425 mg capsule 425 mg PO DAILY UTI prevention 01/08/23 01/08/23 History cyanocobalamin (vitamin B-12) 100 100 mcg PO DAILY Supplement 01/08/23 01/08/23 History mcg tablet d-mannose 500 mg capsule 500 mg PO DAILY UTI prevention 01/08/23 01/08/23 History diazepam 5 mg tablet 5 mg PO BID Anxiety 01/08/23 01/08/23 History docusate sodium 250 mg capsule 500 mg
--- NOTE | 2023-01-08 18:32 | PC.NURSE ---
last 4ml of air removed from right radial band, radialband removed. gauze covered with tegaderm applied to right radial surgical site.
[2023-01-08 19:22] LABS: Adenovirus,PCR Not Detected (NotDetected); Coronavirus 19, PCR Not Detected (NotDetected); Coronavirus 229E Not Detected (NotDetected); Coronavirus NL63 Not Detected (NotDetected); Coronavirus OC43 Not Detected (NotDetected); Coronovirus HKU1,PCR Not Detected (NotDetected); Human Metapneumovirus Not Detected (NotDetected); Influenza A, PCR Not Detected (NotDetected); Influenza AH1, 2009 Not Detected (NotDetected); Influenza AH1, PCR Not Detected (NotDetected); Influenza AH3,PCR Not Detected (NotDetected); Influenza B, PCR Not Detected (NotDetected); Parainfluenza 1, PCR Not Detected (NotDetected); Parainfluenza 2, PCR Not Detected (NotDetected); Parainfluenza 3, PCR Not Detected (NotDetected); Parainfluenza 4, PCR Not Detected (NotDetected); Respiratory Syncytial Virus Not Detected (NotDetected); Rhinovirus/Enterovirus Not Detected (NotDetected)
[2023-01-09] VITALS (14 sets, daily range): BP systolic 106–142; BP diastolic 55–80; PULSE 78–120; RESP 10–20; TEMP 36.6–37.7; O2SAT 95–100; BMI 29.2
[2023-01-09 06:37] LABS: Basophils % 0.1 % (0.1-2.0); Eosinophils % 0.2 % (0.1-12.0); Hematocrit 34.3 % (37.0-47.0); Lymphocytes # 1.5 K/mm3 (0.7-4.5); Lymphocytes % 14.8 % (10-50); Mean Corpuscular HGB Conc 34.3 g/dL (31.8-35.4); Mean Corpuscular Hemoglobin 30.4 pg (27.0-31.2); Mean Corpuscular Volume 88.8 fl (81-99); Mean Platelet Volume 8.3 fl (7.4-10.4); Monocytes # 0.6 K/mm3 (0.1-1.0); Monocytes % 5.9 % (1.7-9.3); Neutrophils # 8.3 K/mm3 (1.8-7.8); Platelet Count 260 K/mm3 (142-424); Red Blood Count 3.86 M/mm3 (4.20-5.40); Red Cell Distribution Width 13.6 % (11.5-17.5); White Blood Count 10.5 K/mm3 (4.8-10.8)
[2023-01-09 06:38] LABS: Alanine Aminotransferase 23 U/L (12-78); Albumin Level 3.3 g/dl (3.5-5.0); Albumin/Globulin Ratio 1.1 (1.1-1.8); Alkaline Phosphatase 74 U/L (38-126); Anion Gap 9.9 mEq/L (5-15); Aspartate Amino Transferase 26 U/L (14-36); Bilirubin,Total 0.2 mg/dl (0.2-1.3); Blood Urea Nitrogen 20 mg/dl (7-17); Calcium 8.8 mg/dl (8.4-10.2); Carbon Dioxide 30 mmol/L (22.0-30.0); Chloride 102 mmol/L (98-107); Creatinine Clearance Estimated 79 mL/min (50-200); Estimated Glomerular Filt Rate 72 ml/min (>60); GFR (African American) 88 ML/MIN (>60); Globulin 3.1 g/dL (1.3-3.2); Glucose 121 mg/dl (74-100); Potassium 3.9 mmoL/L (3.5-5.1); Sodium 138 mmol/L (136-145); Total Protein,Serum 6.4 g/dl (6.3-8.2)
[2023-01-09 06:46] LABS: Hemoglobin 11.7 g/dL (12.2-16.2)
--- NOTE | 2023-01-09 07:55 | SW/DCPLANNER ---
Addendum entered by Tanesha Reveles 01/10/23 09:08: I have updated Brigida w/ Aaron Calvillo that patient will return today and need four more days of IM Ertapenem. Patient will be [facility] level of care. Original Note: Patient currently resides at [facility], [place] level of care. I will continue to follow up w/ Brigida at [place] until patient is medically stable for discharge. Discharge date is unknown at this time.
--- NOTE | 2023-01-09 08:56 | EXP.PULM.CON ---
History of Present Illness History of present illness: Mr. Salazar is a 62-year-old female greater than 30 PPD, history of COPD on chronic hypoxic respiratory failure presented to hospital complaining of altered mental status found to be in hypoxic respiratory failure needing increasing oxygen requirements and pulmonary was called for further evaluation and management. [facility] Disclaimer: The information contained in this section may have been updated after the patient was seen, as this information can be updated by other users. Medical History Acute and chronic respiratory failure with hypoxia Chronic hypoxemic respiratory failure Collapse of left lung COPD (chronic obstructive pulmonary disease) Dyspnea on exertion Exertional shortness of breath Multiple pulmonary nodules Other nonspecific abnormal finding of lung field Pneumonia Pulmonary emphysema Screening for lung cancer Shortness of breath Stopped smoking with greater than 30 pack year history Surgical History Surgical history unknown Family History Hyperlipidemia Hypertension Social History Smoking Status: Never smoker alcohol intake: never current occupational status: disabled Travel in the last 8 weeks: None household members: none housing: house caffeine: Yes Review of Systems Constitutional Constitutional: Reports anorexia, Reports body ache(s) and Reports fatigue Eyes Eyes: Denies eye discharge, Denies dry eyes, Denies irritation and Denies itchy eyes ENT Ears, Nose, Mouth, and Throat: Denies epistaxis, Denies facial pain, Denies lip swelling and Denies throat swelling *Cardiovascular Cardiovascular: Reports dyspnea and Reports dyspnea on exertion *Respiratory Respiratory: Reports chest congestion, Reports cough, Reports dyspnea, Reports dyspnea on exertion, Denies excessive phlegm production and Denies wheezing *Gastrointestinal Gastrointestinal: Denies abdominal pain, Denies belching and Denies cramping *Musculoskeletal Musculoskeletal: Reports back pain, Reports muscle cramps, Reports muscle weakness, Reports myalgias, Reports radiating pain into limb and Reports other (No small joint swelling or Pain) Psychiatric Psychiatric: Denies homicidal ideation and Denies suicidal ideation Endocrine Endocrine: Reports fatigue and Denies heat intolerance Hematologic/Lymphatic Hematologic/Lymphatic: Denies easy bleeding and Denies lymphadenopathy Allergic/Immunologic Allergic/Immunologic: Denies itchy eyes, Denies lip swelling, Denies throat swelling and Denies wheezing Pulmonology Exam Inpatient Vital signs and Labs for Last 24 Hours: Temp Pulse Resp BP Pulse Ox O2 Del Method O2 Flow Rate 98.7 F 93 H 10 L 115/64 98 Venturi Mask 15 01/09/23 07:30 01/09/23 06:00 01/09/23 06:00 01/09/23 06:00 01/09/23 06:00 01/09/23 06:52 01/09/23 06:52 FiO2 50 01/09/23 06:00 Laboratory Results - last 24 hr 01/08/23 06:27: Acetone Level None detected 01/08/23 06:39: Urine Methadone Screen Negative, Urine Cocaine Screen Negative 01/08/23 10:18: Troponin I < 0.01 01/08/23 19:15: Chlamy pneumoniae PCR TNP, Adenovirus (PCR) Not detected, B. pertussis DNA (PCR) TNP, Coronavirus OC43 (PCR) Not detected, Coronavirus HKU1 (PCR) Not detected, Coronavirus 229E (PCR) Not detected, SARS-CoV-2 (PCR) Not detected, Coronavirus NL63 (PCR) Not detected, Human Metapneumovir PCR Not detected, Influenza A (H1) PCR Not detected, Influ A (H1N1/09) PCR Not detected, Influenza A (H3) PCR Not detected, Influenza Type A (PCR) Not detected, Influenza Type B (PCR) Not detected, M. pneumoniae (PCR) TNP, Parainfluenza 1 (PCR) Not detected, Parainfluenza 2 (PCR) Not detected, Parainfluenza 3 (PCR) Not detected, Parainfluenza 4 (PCR) Not detected, RSV (PCR) Not detected, Entero/Rhino (PCR) Not detected 01/09/23 05:33: WBC 10.5, R
--- NOTE | 2023-01-09 14:50 | EXP.ACUTE.PN ---
Subjective *Date: 01/09/23 *Time: 14:50 Interval history: Patient more interactive and alert today. Appears to be at baseline mentation. Weaning oxygen. Still on 4 L on morning rounds, able to come off Ventimask. Denies any chest pain or shortness of breath. Dumont catheter still in place, will remove today. Making significant urine, appears dark however. Medical Exam Vital signs and Labs for Last 24 Hours: Vital Signs Temp Pulse Pulse Resp BP Pulse Ox O2 Del Method 01/09/23 13:00 Nasal Cannula 01/09/23 10:00 91 H 16 135/76 96 Nasal Cannula 01/09/23 08:00 89 16 116/73 99 Venturi Mask 01/09/23 11:45 99.8 F H 01/09/23 11:00 Nasal Cannula 01/09/23 09:00 Nasal Cannula 01/09/23 11:15 85 01/09/23 11:15 87 01/09/23 09:57 Nasal Cannula 01/09/23 08:00 80 01/09/23 07:30 98.7 F 01/09/23 05:54 79 01/09/23 05:54 82 01/09/23 05:54 100 Venturi Mask 01/09/23 04:00 99.0 F 01/09/23 04:00 80 01/09/23 00:00 95 Venturi Mask 01/09/23 02:00 88 19 107/64 L 97 Venturi Mask 01/09/23 00:00 90 01/09/23 00:00 98.7 F 93 H 20 116/67 96 Venturi Mask 01/08/23 23:00 Venturi Mask 01/08/23 22:12 94 H 14 104/60 L 96 Venturi Mask 01/08/23 20:00 85 01/09/23 06:52 Venturi Mask 01/09/23 06:00 93 H 10 L 115/64 98 Venturi Mask 01/09/23 05:00 Venturi Mask 01/09/23 04:00 84 14 106/55 L 97 Venturi Mask 01/09/23 04:00 96 Venturi Mask 01/09/23 03:00 Venturi Mask 01/09/23 01:00 Venturi Mask 01/08/23 21:00 Venturi Mask 01/08/23 20:00 96 Venturi Mask 01/08/23 20:00 99.2 F 01/08/23 18:50 Venturi Mask 01/08/23 18:00 105 H 12 131/77 94 L Venturi Mask 01/08/23 16:00 80 01/08/23 17:23 Venturi Mask 01/08/23 15:59 18 115/72 96 01/08/23 15:58 96 Venturi Mask 01/08/23 15:52 86 96 Venturi Mask 01/08/23 15:46 Venturi Mask O2 Flow Rate FiO2 01/09/23 13:00 3 01/09/23 10:00 4 01/09/23 08:00 15 01/09/23 11:45 01/09/23 11:00 3 01/09/23 09:00 4 01/09/23 11:15 01/09/23 11:15 01/09/23 09:57 4 01/09/23 08:00 01/09/23 07:30 01/09/23 05:54 01/09/23 05:54 01/09/23 05:54 50 01/09/23 04:00 01/09/23 04:00 01/09/23 00:00 15 50 01/09/23 02:00 15 50 01/09/23 00:00 01/09/23 00:00 15 50 01/08/23 23:00 15 01/08/23 22:12 15 50 01/08/23 20:00 01/09/23 06:52 15 01/09/23 06:00 15 50 01/09/23 05:00 01/09/23 04:00 15 40 01/09/23 04:00 15 40 01/09/23 03:00 15 01/09/23 01:00 15 01/08/23 21:00 15 01/08/23 20:00 15 50 01/08/23 20:00 01/08/23 18:50 15 01/08/23 18:00 01/08/23 16:00 01/08/23 17:23 15 01/08/23 15:59 15 50 01/08/23 15:58 15 30 01/08/23 15:52 15 50 01/08/23 15:46 15 Intake and Output 01/08/23 01/09/23 01/09/23 23:59 07:59 15:59 Intake Total 550 / 1747 900 / 2000 1100 / 2000 Output Total 505 / 1230 800 / 2000 1200 / 2000 Balance 45 / 517 100 / 0 -100 / 0 Intake: Intake, Oral Amount 400 / 400 0 / 270 270 / 270 Intake, Total IV Amount 150 / 1347 900 / 1730 830 / 1730 Lactated Ringers 1000ML 1,000 150 / 497 900 / 1730 830 / 1730 ml @ 50 mls/hr IV .Q20H [facility] Rx# :[id number] Output: Output, Urine Amount 380 / 1105 300 / 1500 1200 / 1500 Output, Urine Amount (Catheter) 125 / 125 500 / 500 Dumont 125 / 125 500 / 500 Other: Number of Unmeasured Voids 0 0 0 Number of Bowel Movements 1 1 Weight 87.345 kg 87.345 kg Patient Weight 01/09/23 23:59 Weight 87.345 kg Laboratory Results - last 24 hr 01/08/23 19:15: Chlamy pneumoniae PCR TNP, Adenovirus (PCR) Not detected, B. pertussis DNA (PCR) TNP, Coronavirus OC43 (PCR) Not detected, Coronavirus HKU1 (PCR) Not detected, Coronavirus 229E (PCR) Not detected, SARS-Co
--- NOTE | 2023-01-09 16:30 | PC.NURSE ---
Pt A&O x3. Currently resting in bed. O2 sats 90s on 3L NC. F/C DC this afternoon. Purewick placed and incontinent brief. Pt's urine is blood tinged. She had a BM this shift. Call light within reach.
[2023-01-10] VITALS (7 sets, daily range): BP systolic 111–129; BP diastolic 77–82; PULSE 78–103; RESP 15–22; TEMP 36.6–37; O2SAT 95–96; BMI 27.4
[2023-01-10 06:13] LABS: MANUAL DIFFERENTIAL MANUAL DIFFERENTIAL (MANUAL DIFF)
[2023-01-10 06:17] LABS: Basophils # 0.1 K/mm3 (0-0.2); Basophils % 0.7 % (0.1-2.0); Eosinophils # 0.5 K/mm3 (0.0-0.4); Hematocrit 35.2 % (37.0-47.0); Hemoglobin 12.1 g/dL (12.2-16.2); Lymphocytes # 2.2 K/mm3 (0.7-4.5); Lymphocytes % 23.9 % (10-50); Mean Corpuscular HGB Conc 34.4 g/dL (31.8-35.4); Mean Corpuscular Hemoglobin 30.2 pg (27.0-31.2); Mean Corpuscular Volume 87.8 fl (81-99); Mean Platelet Volume 8.1 fl (7.4-10.4); Monocytes # 0.6 K/mm3 (0.1-1.0); Monocytes % 6.8 % (1.7-9.3); Neutrophils # 5.8 K/mm3 (1.8-7.8); Neutrophils % 63.5 % (37.0-80.0); Platelet Count 258 K/mm3 (142-424); Red Blood Count 4.01 M/mm3 (4.20-5.40); Red Cell Distribution Width 13.6 % (11.5-17.5); White Blood Count 9.1 K/mm3 (4.8-10.8)
[2023-01-10 06:41] LABS: Blood Urea Nitrogen 14 mg/dl (7-17); Calcium 8.8 mg/dl (8.4-10.2); Carbon Dioxide 28 mmol/L (22.0-30.0); Chloride 100 mmol/L (98-107); Creatinine Clearance Estimated 75 mL/min (50-200); Estimated Glomerular Filt Rate 85 ml/min (>60); GFR (African American) 102 ML/MIN (>60); Glucose 104 mg/dl (74-100); Potassium 3.4 mmoL/L (3.5-5.1)
[2023-01-10 06:57] LABS: Anion Gap 13.4 mEq/L (5-15); Sodium 138 mmol/L (136-145)
[2023-01-10 07:01] LABS: Eosinophils % 6 % (0-3); Lymphocytes % 24 % (10-50); Monocytes % 4 % (2-9); Neutrophils % 66 % (42-76); Platelet Estimate Normal; RBC Morphology Normal; Total Cells Counted 100
--- NOTE | 2023-01-10 07:52 | EXP.DC.SUM ---
General Admission date:: 01/08/23 Discharge date: 01/10/23 HPI HPI HPI: Ms. Salazar is a 62-year-old female who is a longtime resident at [facility]. She has a history of dementia, COPD, debility. She was found to be altered and confused this morning with last known normal at 11 PM last night. When staff tried to wake her at 2 AM she was not responsive. They thought she was sleeping. Tried to wake her again on morning change of staff and had concern for facial droop as well as being poorly responsive. EMS was contacted and she was found to be hypoxic in the 80s. Placed on a nonrebreather and brought to the ER for further evaluation. On arrival she was tachycardic, hypotensive, tachypneic. Given her respiratory distress, she was placed on BiPAP. Work-up concerning for UTI by and sepsis given her tachycardia, tachypnea, and suspected infection with urine. Medicine was consulted for admission. On arrival to the floor, patient is somnolent. Reviewed her blood gas, she is not hypercapnic. Chest imaging does not show focal pneumonia or consolidation. Transitioned to Ventimask. [facility]ears 2 L continuously at the [facility] at baseline. Unable to give any history or review of systems. Hospital Course Hospital Course Hospital Course: 62-year-old female who presented with altered mental status, found to have severe sepsis from UTI. Discussed case with ER, request admission for IV antibiotics, respiratory support, and treatment for her encephalopathy. Medicine admitted to stepdown level of care for further management. Necessitating IV antibiotics and inpatient admission. Patient has responded well to antibiotics. Back to baseline mentation. Weaned to baseline 2 L nasal cannula oxygen. Stable for discharge back to nursing facility for continued care. Problems addressed during hospitalization as follows: Encephalopathy, toxic, resolved, Appears at baseline mentation Severe sepsis, resolved Urinary tract infection -And severe sepsis with encephalopathy on admission. Started on empiric antibiotics with Vanco and Zosyn for presumed UTI and sepsis. Encephalopathy has improved with treatment of infection as well as making adjustments to medications. Concern the patient was oversedated. We will continue antibiotics with transition to ertapenem 1 g daily for a total of 7-day antibiotic course. Culture still pending at time of discharge. Would recommend repeat CBC and CMP in 1 week. In regard to sedating meds, have made adjustments as follows: Trazodone decreased to 50 mg nightly Gabapentin resume regular dose Valium decreased to 2.5 mg twice daily Acute hypoxic respiratory failure COPD -Chronically on 2 L nasal cannula at home. Requiring initially BiPAP on arrival to the ER, weaned quickly to Ventimask. Within 24 hours able to wean to nasal cannula oxygen. Back to baseline oxygen on day of discharge. Pulmonology was consulted because CTA of chest showed concern for collapse of left lower lobe. Treated with breathing treatments and physiotherapy. Respiratory improvement during admission. Antibiotics for UTI will cover for possible respiratory source as well. Recommend continuing incentive spirometry and breathing treatments at discharge. Chronic debility, questionable history for dementia. [facility] at [facility]. Social determinants complicate her care Stable discharge back to [facility] to complete antibiotic course. Spent 30 minutes in discharge counseling, medication reconciliation, documentation, chart review, coordination with subspecialist and case management, and direct care with patient. Exam Data for Last 24 hours Vital signs and Labs for Last 24 Hours: Temp Pulse Resp BP Pulse Ox O2 Del Method O2 Flow Rate 98.6 F 103 H 22 129/82 96 Nasal Cannula 3 01/10/23 07:45 01/10/23 07:45 01/10/23 07:45 01/10/23 07:45 01/10/23 07:45 01/10/23 07:47 01/10/23 07:47 FiO2 50 01/09/23 0
--- NOTE | 2023-01-10 09:11 | EXP.PULM.PN ---
Subjective *Date: 01/10/23 *Time: 10:11 Interval history: No acute respiratory vents overnight. Stable oxygen requirements. Patient denies any new respiratory complaints. Pulmonology Exam Inpatient Vital signs and Labs for Last 24 Hours: Temp Pulse Resp BP Pulse Ox O2 Del Method O2 Flow Rate 98.6 F 103 H 22 129/82 96 Nasal Cannula 3 01/10/23 07:45 01/10/23 07:45 01/10/23 07:45 01/10/23 07:45 01/10/23 07:45 01/10/23 07:47 01/10/23 07:47 FiO2 50 01/09/23 06:00 Laboratory Results - last 24 hr 01/10/23 06:06: WBC 9.1, RBC 4.01 L, Hgb 12.1 L, Hct 35.2 L, MCV 87.8, MCH 30.2, MCHC 34.4, RDW 13.6, Plt Count 258, MPV 8.1, Neut % (Auto) 63.5, Lymph % (Auto) 23.9, Haines % (Auto) 6.8, Eos % (Auto) 5.0, Baso % (Auto) 0.7, Neut # (Auto) 5.8, Lymph # (Auto) 2.2, Haines # (Auto) 0.6, Eos # (Auto) 0.5 H, Baso # (Auto) 0.1, Total Counted 100, Neutrophils % (Manual) 66, Lymphocytes % (Manual) 24, Monocytes % (Manual) 4, Eosinophils % (Manual) 6 H, Platelet Estimate Normal, RBC Morphology Normal, Sodium 138, Potassium 3.4 L, Chloride 100, Carbon Dioxide 28, Anion Gap 13.4, BUN 14 D, Creatinine 0.70, Estimated Creat Clear 75, Estimated GFR 85, Est GFR ( Amer) 102, Glucose 104 H, Calcium 8.8 I & O for Labs for Last 24 Hours: Intake & Output 01/07/23 01/08/23 01/09/23 01/10/23 23:59 23:59 23:59 23:59 Intake Total 1497 / 1747 2290 / 2530 480 / 480 Output Total 1230 / 1230 4150 / 4150 800 / 800 Balance 267 / 517 -1860 / -1620 -320 / -320 Weight 187 lb 4 oz 192 lb 9.004 oz 181 lb 1 oz Constitutional: Present moderate distress Head: Present normocephalic and atraumatic ENT: Present normal exam, normal oropharynx and mucous membranes moist Neck: Present normal inspection and full ROM Respiratory: Present respiratory distress and able to speak in complete sentences; Absent prolonged expiratory phase or wheezes Cardiac: Present S1/S2, Tachycardia and radial pulses present GI: Present soft and distention; Absent tenderness or guarding Rectal (female): Present deferred (female): Present deferred Skin: Present intact; Absent cyanosis or jaundice Neuro: Present alert, awake and oriented x 3 Extremities: Present normal inspection; Absent clubbing or cyanosis Psychiatric: Present normal affect and cooperative Assessment and Plan *Assessment and plan (1) Acute and chronic respiratory failure with hypoxia: Status: Acute Category: Medical Code(s): J96.21 - Acute and chronic respiratory failure with hypoxia (2) Collapse of left lung: Status: Acute Category: Medical Code(s): J98.11 - Atelectasis Plan Mr. Salazar is a 62-year-old female greater than 30 PPD, history of COPD on chronic hypoxic respiratory failure presented to hospital complaining of altered mental status found to be in hypoxic respiratory failure needing increasing oxygen requirements and pulmonary was called for further evaluation and management. Mild leukocytosis upon admission. Improving. Afebrile. VBG upon admission did not show any evidence of hypoxic/hypercarbic respiratory failure. CTA upon admission no evidence of pulmonary embolism. Bilateral diffuse emphysematous changes with minimal right lower lobe consolidative changes. Left lower lobe collapse noted which is new from her low-dose CT from November 2022. Patient was initiated on home inhaler therapy upon admission. On consult examination, patient does not appear to be in any respiratory distress. No significant wheezing noted on auscultation. She continue to receive Zosyn for presumed UTI. Interval update: No acute respiratory vents overnight. [facility] Chest x-ray from this morning reviewed, no acute pulmonary findings, improving left lower lobe collapse. Plan: Continue incentive spirometry Continue oxygen supplementation to maintain O2 saturation goal of 90% and Continue home inhaler therapy including Trelegy 100 i
--- NOTE | 2023-01-10 09:12 | XR_ITS ---
FINAL REPORT CLINICAL HISTORY: Hypoxia COMPARISON: 01/08/2023 FINDINGS: A portable view of the chest was obtained. The heart and mediastinum are stable. The patient is rotated. There appear to be new, left greater than right opacities which may represent pneumonia. There is no pleural effusion or pneumothorax. IMPRESSION: New, left greater than right opacities may represent pneumonia. Reviewed, Interpreted and Dictated by Suzie Gonzalez MD Transcribed by Giuliana Flores Authenticated and [facility]
--- NOTE | 2023-01-10 10:39 | PC.NURSE ---
Report called to Tessa at [facility].
--- NOTE | 2023-01-14 14:05 | PC.NURSE ---
notified dr. mejias of urine culture results, he reviewed it, pt d/c on Ertapenam IM, states no changes in medications needed.
== END 2023-01-10 11:59 | DRG 871 ==
LOC: ER 08:48 → 2ND 09:02
PROVIDERS: Admitting Provider Internal Medicine Adolescent Medicine; Emergency Provider Emergency Medicine; Visit Provider Internal Medicine Adolescent Medicine
DX: A41.9 Sepsis, unspecified organism (principal); G92.9 Unspecified toxic encephalopathy; J96.21 Acute and chronic respiratory failure with hypoxia; N39.0 Urinary tract infection, site not specified; J98.11 Atelectasis; R65.20 Severe sepsis without septic shock; F03.90 Unspecified dementia, unspecified severity, without behavioral disturbance, psychotic disturbance, mood disturbance, and anxiety; Z66 Do not resuscitate; Z87.891 Personal history of nicotine dependence; J43.2 Centrilobular emphysema; G89.29 Other chronic pain; Z99.81 Dependence on supplemental oxygen
CPT/HCPCS: 36415; 51702; 70450; 70496; 70498; 71045; 71275; 80048; 80053; 80305; 81001; 82009; 82803; 83605; 83690; 83735; 83880; 84484; 85007; 85014; 85018; 85025; 85048; 85049; 85378; 85610; 87040; 87086; 87632; 87635; 93005; 94640; 94660; 94760; 94761; 99291; J1335; J2543; Q9967

== ENCOUNTER 2023-04-12 21:16 | Outpatient (CLI) | payer MEDICAID, SELFPAY ==
[2023-04-12 22:00] LABS: Basophils # 0.1 K/mm3 (0-0.2); Basophils % 0.9 % (0.1-2.0); Eosinophils # 0.4 K/mm3 (0.0-0.4); Eosinophils % 4.5 % (0.1-12.0); Hematocrit 36.6 % (37.0-47.0); Lymphocytes # 2.5 K/mm3 (0.7-4.5); Lymphocytes % 30.5 % (10-50); Mean Corpuscular HGB Conc 32.7 g/dL (31.8-35.4); Mean Corpuscular Hemoglobin 28.9 pg (27.0-31.2); Mean Corpuscular Volume 88.6 fl (81-99); Monocytes # 0.6 K/mm3 (0.1-1.0); Monocytes % 7.3 % (1.7-9.3); Neutrophils # 4.7 K/mm3 (1.8-7.8); Neutrophils % 56.7 % (37.0-80.0); Platelet Count 298 K/mm3 (142-424); Red Blood Count 4.13 M/mm3 (4.20-5.40); Red Cell Distribution Width 14.5 % (11.5-17.5); White Blood Count 8.3 K/mm3 (4.8-10.8)
[2023-04-12 22:08] LABS: Alanine Aminotransferase 24 U/L (12-78); Albumin Level 3.8 g/dl (3.5-5.0); Albumin/Globulin Ratio 1.3 (1.1-1.8); Alkaline Phosphatase 82 U/L (38-126); Anion Gap 13.2 mEq/L (5-15); Aspartate Amino Transferase 28 U/L (14-36); Bilirubin,Total 0.4 mg/dl (0.2-1.3); Blood Urea Nitrogen 9 mg/dl (7-17); Calcium 9.5 mg/dl (8.4-10.2); Carbon Dioxide 32 mmol/L (22.0-30.0); Chloride 100 mmol/L (98-107); Estimated Glomerular Filt Rate 85 ml/min (>60); GFR (African American) 102 ML/MIN (>60); Glucose 103 mg/dl (74-100); Potassium 4.2 mmoL/L (3.5-5.1); Sodium 141 mmol/L (136-145); Total Protein,Serum 6.8 g/dl (6.3-8.2)
== END 2023-04-12 23:59 ==
PROVIDERS: PCP Internal Medicine; Visit Provider Internal Medicine
DX: R06.09 Other forms of dyspnea (principal); J15.69 Pneumonia due to other Gram-negative bacteria
CPT/HCPCS: 80053; 85025; 87070; 87205

== ENCOUNTER 2023-05-03 21:47 | Outpatient (CLI) | payer MEDICAID, SELFPAY ==
[2023-05-03 22:13] LABS: Microscopic, Urine URINE MICROSCOPIC (MICROSCOPIC)
[2023-05-03 22:48] LABS: Appearance,Urine CLEAR (Clear); Bilirubin,Urine Negative (Negative); Blood, Urine 3+ (Negative); Color,Urine YELLOW (Yellow); Glucose,Urine (UA) Negative (Negative); Ketones,Urine Negative (Negative); Leukocyte Esterase,Urine 3+ (Negative); Nitrate,Urine POSITIVE (Negative); PH,Urine 7.5 (5.0-8.5); Protein,Urine TRACE (Negative); Urobilinogen,Urine 0.2 EU/dl (0.2)
[2023-05-03 23:21] LABS: Amorphous Sediment,Urine Trace /lpf; Bacteria,Urine 2+ /lpf; Squamous Epithelial Cell,Urine Occasional #/hpf (0-5); Transitional Epi Cells,Urine OCC #/lpf (0-3); Triple Phosphate Crystal,Urine 1+ /lpf
== END 2023-05-03 23:59 ==
LOC: LAB.DROPOF 21:49
PROVIDERS: PCP Internal Medicine; Visit Provider Internal Medicine
DX: R30.0 Dysuria (principal); B96.4 Proteus (mirabilis) (morganii) as the cause of diseases classified elsewhere
CPT/HCPCS: 81001; 87086

== ENCOUNTER 2023-05-16 09:40 | Outpatient (CLI) | payer MEDICAID, SELFPAY ==
[2023-05-16 16:46] LABS: Basophils # 0.1 K/mm3 (0-0.2); Eosinophils # 0.2 K/mm3 (0.0-0.4); Eosinophils % 1.4 % (0.1-12.0); Hematocrit 42.9 % (37.0-47.0); Lymphocytes # 1.8 K/mm3 (0.7-4.5); Lymphocytes % 17.6 % (10-50); Mean Corpuscular HGB Conc 32.7 g/dL (31.8-35.4); Mean Corpuscular Hemoglobin 29.2 pg (27.0-31.2); Mean Corpuscular Volume 89.5 fl (81-99); Mean Platelet Volume 8.1 fl (7.4-10.4); Monocytes # 0.5 K/mm3 (0.1-1.0); Monocytes % 4.5 % (1.7-9.3); Neutrophils # 7.9 K/mm3 (1.8-7.8); Neutrophils % 75.5 % (37.0-80.0); Platelet Count 319 K/mm3 (142-424); Red Cell Distribution Width 14.9 % (11.5-17.5); White Blood Count 10.4 K/mm3 (4.8-10.8)
[2023-05-16 17:04] LABS: Alanine Aminotransferase 41 U/L (12-78); Albumin Level 4.4 g/dl (3.5-5.0); Albumin/Globulin Ratio 1.3 (1.1-1.8); Alkaline Phosphatase 80 U/L (38-126); Aspartate Amino Transferase 59 U/L (14-36); Bilirubin,Total 0.5 mg/dl (0.2-1.3); Calcium 9.5 mg/dl (8.4-10.2); Carbon Dioxide 22 mmol/L (22.0-30.0); Chloride 101 mmol/L (98-107); Globulin 3.3 g/dL (1.3-3.2); Glucose 125 mg/dl (74-100); Sodium 137 mmol/L (136-145); Total Protein,Serum 7.7 g/dl (6.3-8.2)
[2023-05-16 17:09] LABS: C-Reactive Protein 8.6 mg/L (0-4)
[2023-05-16 17:49] LABS: Blood Urea Nitrogen 16 mg/dl (7-17); Estimated Glomerular Filt Rate 85 ml/min (>60); GFR (African American) 102 ML/MIN (>60)
[2023-05-21 05:49] LABS: Aspergillus Antigen, BAL/Serum 0.04 Index (0.00-0.49)
[2023-05-21 17:36] LABS: Aspergillus flavus Negative (Neg:<1:1); Aspergillus fumigatus Negative (Neg:<1:1); Aspergillus niger Negative (Neg:<1:1); Blastomyces Antibody Negative (Neg:<1:1)
[2023-05-23 13:24] LABS: M003-IgE Aspergillus fumigatus <0.10 kU/L (Class 0)
[2023-05-24 04:31] LABS: Aspergillus fumigatus IgG 75.4
[2023-05-24 04:35] LABS: Fungitell(Beta D-Glucan) Serum 55.676
== END 2023-05-16 23:59 ==
LOC: LAB.DROPOF 05-20 09:40
PROVIDERS: PCP Internal Medicine Pulmonary Disease; Visit Provider Internal Medicine Pulmonary Disease
DX: B44.9 Aspergillosis, unspecified (principal); B49 Unspecified mycosis; J16.8 Pneumonia due to other specified infectious organisms; J84.10 Pulmonary fibrosis, unspecified; R06.09 Other forms of dyspnea; J84.9 Interstitial pulmonary disease, unspecified; J45.909 Unspecified asthma, uncomplicated
CPT/HCPCS: 36415; 80053; 85025; 86003; 86140; 86606; 86612; 87305; 87449

== ENCOUNTER 2023-05-16 14:44 | Outpatient (CLI) | payer MEDICAID, SELFPAY ==
--- NOTE | 2023-05-16 14:45 | CT_ITS ---
FINAL REPORT TECHNIQUE: Axial CT images were performed from the lung apices through the upper abdomen. Coronal and sagittal reformats were submitted. This study was performed with techniques to keep radiation doses as low as reasonably achievable (ALARA). Individualized dose reduction techniques using automated exposure control or adjustment of mA and/or kV according to the patient's size were employed. CLINICAL HISTORY: 6-month follow-up COMPARISON: 01/08/2023 FINDINGS: There is no axillary adenopathy. There is no hilar or mediastinal mass or adenopathy. Heart size is normal. Moderate coronary artery calcifications are present. Severe changes of emphysema are identified. There is no pericardial or pleural effusion. There is a new mass present in the left upper lobe, since the prior CT of January 2023. This mass measures 5.3 x 4.9 cm in size, and is most worrisome for neoplasm. There has been near complete resolution of the left lower lobe collapse since the prior CT. Mild ring is present bilaterally. The liver is heterogeneous, and may represent focal fatty infiltration or underlying neoplasm. There is a right renal staghorn calculus present. The gallbladder has been surgically resected. IMPRESSION: New mass is present in the left upper lobe, measuring 5.3 x 4.9 cm in size, most worrisome for neoplasm. Suggest PET/CT and CT biopsy of the left upper lobe mass. Heterogeneous liver, focal fatty infiltration versus neoplasm. Recommend liver mass protocol CT or MRI for further evaluation. Reviewed, Interpreted and Dictated by Gerry Mejia III, MD Transcribed by Stephanie Mcdowell Authenticated and [facility]
--- NOTE | 2023-05-17 09:27 | HMH.ITSTN ---
Called and spoke with [facility] in Dr. Sharma office. Critical finding on CT. She stated they were aware of the Ct Findings
== END 2023-05-16 23:59 ==
PROVIDERS: PCP Internal Medicine; Visit Provider Internal Medicine Pulmonary Disease
DX: R91.8 Other nonspecific abnormal finding of lung field (principal)
CPT/HCPCS: 71250

== ENCOUNTER 2023-05-28 07:19 | Outpatient (CLI) | payer MEDICAID, SELFPAY ==
[2023-05-28] VITALS (17 sets, daily range): BP systolic 133–200; BP diastolic 79–119; PULSE 74–105; RESP 18–22; TEMP 36.4; O2SAT 95–100; BMI 25.8
--- NOTE | 2023-05-28 07:19 | CT_ITS ---
FINAL REPORT CLINICAL HISTORY: left upper lobe mass FINDINGS: CT GUIDE LUNG BIOPSY. HISTORY: Lung mass ATTENDING PHYSICIAN: Dr. Acosta PHYSICIAN EMERGENCY MEDICAL TECHNICIAN: Anthony Lucas PA-C PROCEDURE: After informed consent was obtained and a timeout was performed, the patient was prepped and draped in usual sterile fashion over the left upper anterior chest. Utilizing local anesthesia and sterile technique with a coaxial system, access to lesion was obtained. 6 18-gauge core biopsy passes were made. Post biopsy films demonstrate no complication. There was no significant pneumothorax. The patient received mild procedural sedation. The patient tolerated the procedure well and left the department in good condition. IMPRESSION: Status post CT-guided biopsy of a lung nodule. PROCEDURAL SEDATION: 5 mg of IV Versed and 100 mcg of Fentanyl were administered. Continuous vital sign monitoring was used. An RN was present during the sedation process. Overall sedation time was 30 minutes. Reviewed, Interpreted and Dictated by Raj Acosta MD Transcribed by RICHARD London Authenticated and [facility]
[2023-05-28 08:35] LABS: Activated Partial Thrombo Time 25.8 seconds (22.8-30.6); INR 1.04 (0.9-1.1); Prothrombin Time 11.2 seconds (10.1-12.5)
--- NOTE | 2023-05-28 09:15 | XR_ITS ---
FINAL REPORT CLINICAL HISTORY: POST BIOPSY ANA, evaluate left lobe for pneumo COMPARISON: 01/10/2023 FINDINGS: SINGLE-VIEW CHEST The heart size is normal. The patient is rotated to the right. The mediastinum is normal. The lungs are clear. There is no pneumothorax. IMPRESSION: No acute cardiopulmonary process. Reviewed, Interpreted and Dictated by Raj Acosta MD Transcribed by Marianna Go Authenticated and [facility]
--- NOTE | 2023-05-28 11:20 | XR_ITS ---
FINAL REPORT CLINICAL HISTORY: POST BIOPSY COMPARISON: 2 hours prior FINDINGS: The patient is rotated to the right. The heart size is normal. The mediastinum is normal. The ovoid opacity at the left apex appears similar to the prior study but is now better seen on this less well penetrated radiograph. There is atelectasis in the left base which is new. There are no pleural effusions. There is no pneumothorax. There is no osseous abnormality. IMPRESSION: Density at the left apex of uncertain significance but consistent with known mass. No pneumothorax post biopsy. Reviewed, Interpreted and Dictated by Raj Acosta MD Transcribed by Cecile Blair Authenticated and [facility]
== END 2023-05-28 12:17 | disposition home or self-care (01) ==
PROVIDERS: PCP Internal Medicine; Visit Provider Internal Medicine Pulmonary Disease
DX: R91.1 Solitary pulmonary nodule (principal)
CPT/HCPCS: 32408; 36415; 71045; 77012; 85610; 85730; 87102; 87116; 87186; 87206

== ENCOUNTER 2023-06-06 15:40 | Outpatient (CLI) | payer MEDICAID, SELFPAY | END 2023-06-06 23:59 | LOC: LAB.DROPOF 15:43 | PROVIDERS: PCP Internal Medicine; Visit Provider Internal Medicine | DX: N89.8 Other specified noninflammatory disorders of vagina (principal) | CPT/HCPCS: 87070; 87205 ==

== ENCOUNTER 2023-06-16 18:51 | Outpatient (CLI) | payer MEDICAID, SELFPAY | END 2023-06-16 23:59 | disposition home or self-care (01) | LOC: LAB.DROPOF 18:53 | PROVIDERS: PCP Internal Medicine; Visit Provider Internal Medicine | DX: R91.8 Other nonspecific abnormal finding of lung field (principal); J18.9 Pneumonia, unspecified organism | CPT/HCPCS: 87116; 87186; 87206; 87220 ==

== ENCOUNTER 2023-08-03 19:37 | Outpatient (CLI) | payer MEDICAID, SELFPAY ==
[2023-08-03 19:58] LABS: Basophils # 0.1 K/mm3 (0-0.2); Basophils % 1.4 % (0.1-2.0); Eosinophils # 0.3 K/mm3 (0.0-0.4); Eosinophils % 5.5 % (0.1-12.0); Hematocrit 41.2 % (37.0-47.0); Hemoglobin 13.5 g/dL (12.2-16.2); Lymphocytes # 2.1 K/mm3 (0.7-4.5); Lymphocytes % 34.1 % (10-50); Mean Corpuscular HGB Conc 32.7 g/dL (31.8-35.4); Mean Corpuscular Hemoglobin 28.8 pg (27.0-31.2); Mean Platelet Volume 8.3 fl (7.4-10.4); Monocytes # 0.4 K/mm3 (0.1-1.0); Monocytes % 6.9 % (1.7-9.3); Neutrophils # 3.3 K/mm3 (1.8-7.8); Neutrophils % 52.2 % (37.0-80.0); Platelet Count 276 K/mm3 (142-424); Red Blood Count 4.68 M/mm3 (4.20-5.40); Red Cell Distribution Width 15.4 % (11.5-17.5); White Blood Count 6.2 K/mm3 (4.8-10.8)
== END 2023-08-03 23:59 | disposition home or self-care (01) ==
LOC: LAB.DROPOF 19:38
PROVIDERS: PCP Internal Medicine; Visit Provider Internal Medicine
DX: I10 Essential (primary) hypertension (principal); R53.81 Other malaise
CPT/HCPCS: 85025